=== PATIENT | female | born 1940 | race African-American/Black ===

== ENCOUNTER → 2016-11-29 | Outpatient (CLI) | payer MEDICARE, MEDICAID ==
[~2016-11-29] MED LIST: DIGO125T82 PO; DILT180C3 PO; ELIQUIS PO; FURO40TA5 PO; GUAI120015 PO; LEVO750T46 PO; OLME20TA14 PO; POTA20TA75 PO; SPIR25TA4 PO; VIAG50 PO
[2016-11-29 09:43] LABS: BG DEOXYHEMOGLOBIN 6.2 % (0.0-5.0); BG FRACTION INSPIRED OXYGEN 21; BG HCO3 ACT 22.1 mmol/L (22.0-26.0); BG METHEMOGLOBIN 0.2 % (0.0-1.5); BG OXYGEN SATURATION 93.7 % (92.0-98.5); BG OXYHEMOGLOBIN 92.6 % (94.0-97.0); BG PCO2 32.2 mmHg (35.0-45.0); BG PH 7.455 (7.350-7.450); BG PO2 67.6 mmHg (75.0-100.0); BG SAMPLE SITE RIGHT BRACHIAL; BG TOTAL HEMOGLOBIN 13.1 g/dL (12.0-18.0); BG VENT MODE ROOM AIR
== END | disposition home or self-care (01) ==
LOC: PF 09:15
PROVIDERS: ATTEND Internal Medicine Pulmonary Disease
DX: J44.9 Chronic obstructive pulmonary disease, unspecified (principal)
CPT/HCPCS: 36600; 82375; 82805

== ENCOUNTER 2018-11-21 10:41 | Inpatient (IN) | payer MEDICARE, MEDICAID ==
[~2018-11-21] VITALS: Ht 157.5 cm; Wt 80.8 kg
[~2018-11-21 10:41] MED LIST changes: +ALBU18HF2 IH; +AMBR5TAB3 MT; +AMLO2.5T45 PO; +BREO ELLIPTA INH; +DEXL60CA3 PO; -DILT180C3 PO; +DILT180C54 PO; +INCRUSE ELLIPTA INH; -LEVO750T46 PO; +METOLAZONE PO; -OLME20TA14 PO; +POTA20TA12 PO; -POTA20TA75 PO; -SPIR25TA4 PO; -VIAG50 PO; +VITAMIN PO
[2018-11-21 11:32] LABS: BASOPHILS % 0.8 % (0.0-2.0); HEMATOCRIT. 38.4 % (36.0-48.0); HEMOGLOBIN. 12.8 g/dL (12.0-16.0); LYMPHOCYTES % 15.8 % (20.0-50.0); MEAN CORPUSCULAR HEMOGLOBIN 30.3 pg (28.0-32.0); MONOCYTES % 8.7 % (2.0-8.0); NEUTROPHILS % 72.7 % (40.0-76.0); PLATELET 251 x1000/uL (130-400); RED BLOOD CELL COUNT 4.22 mill/uL (4.2-5.4); RED CELL DISTRIBUTION WIDTH 18.5 % (11.6-14.6)
[2018-11-21 11:37] LABS: CHLORIDE 109 mEq/L (98-107)
[2018-11-21 12:08] LABS: BG BASE EXCESS -1.3 mmol/L (-2.0-2.0); BG BILEVEL POS AIRWAY PRESSURE 15/5; BG CARBOXYHEMOGLOBIN 0.8 % (0.5-1.5); BG DEOXYHEMOGLOBIN 0.3 % (0.0-5.0); BG HCO3 ACT 22.2 mmol/L (22.0-26.0); BG METHEMOGLOBIN 0.2 % (0.0-1.5); BG OXYGEN SATURATION 99.7 % (92.0-98.5); BG OXYHEMOGLOBIN 98.7 % (94.0-97.0); BG PCO2 33.5 mmHg (35.0-45.0); BG PH 7.439 (7.350-7.450); BG PO2 507.1 mmHg (75.0-100.0); BG SAMPLE SITE RIGHT RADIAL; BG TOTAL HEMOGLOBIN 12.4 g/dL (12.0-18.0); BG VENT MODE MASK - BIPAP; BG VENT RATE 14 set
[2018-11-21] MEDS ORDERED: LEVOFLOXACIN 750MG PREMIX 150 ML IV ONE (13:15)
[2018-11-21] MEDS ORDERED: FUROSEMIDE 100MG/10ML VIAL IVP SCH (15:30)
[2018-11-21] MEDS ORDERED: AMLODIPINE 2.5MG TABLET PO SCH (15:30)
[2018-11-21] MEDS ORDERED: DILTIAZEM HCL 30MG TABLET PO SCH (18:00)
[2018-11-21] MEDS ORDERED: LEVOFLOXACIN 500MG PREMIX 100 ML IV ONE (21:30)
[2018-11-21 22:00] VITALS: BP 107/68
[2018-11-21 23:04] VITALS: BP 120/56
[2018-11-21] MEDS ORDERED: SPIR25TA6 PO (23:46)
[2018-11-21] MEDS ORDERED: MIDO5TAB PO (23:46)
[2018-11-21] MEDS: DILTIAZEM HCL 30MG TABLET PO SCH (23:57)
[2018-11-21] MEDS: ENOXAPARIN 60MG/0.6ML SYR SUBCUT SCH (23:58)
[2018-11-22] VITALS (15 sets, daily range): BP systolic 94–140; BP diastolic 31–121
[2018-11-22] MEDS ORDERED: METHYLPREDNISOLONE SOD SUCC 125 MG/2 ML VIAL IV NR
[2018-11-22] MEDS: METHYLPREDNISOLONE SOD SUCC 40 MG/ML VIAL IV SCH ×3 (06:34→21:32)
[2018-11-22] MEDS: DILTIAZEM HCL 30MG TABLET PO SCH ×3 (06:35→18:00)
[2018-11-22 07:00] LABS: HEMATOCRIT. 36.7 % (36.0-48.0); MEAN CORPUSCULAR HEMOGLOBIN 29.7 pg (28.0-32.0); MEAN CORPUSCULAR VOLUME 90.4 fL (81.0-99.0); MEAN PLATELET VOLUME 8.8 fl (7.4-10.4); PLATELET 215 x1000/uL (130-400); RED BLOOD CELL COUNT 4.06 mill/uL (4.2-5.4); RED CELL DISTRIBUTION WIDTH 18.8 % (11.6-14.6)
[2018-11-22 07:12] LABS: CHLORIDE 109 mEq/L (98-107)
[2018-11-22 07:25] LABS: D-DIMER 12.55 mg/L FEU (<0.50); INR 1.2
[2018-11-22 07:25] LABS: CREATINE KINASE MB FRACTION 2.8 ng/mL (0.5-3.6)
[2018-11-22 07:26] LABS: CREATINE KINASE 72 IU/L (26-192)
[2018-11-22 07:27] LABS: LDL CHOLESTEROL 86 mg/dL (5-100); PHOSPHORUS 3.5 mg/dL (2.5-4.9)
[2018-11-22 07:28] LABS: HDL CHOLESTEROL 42 mg/dL (40-59)
[2018-11-22 08:08] LABS: BG BASE EXCESS -2.7 mmol/L (-2.0-2.0); BG CARBOXYHEMOGLOBIN 0.9 % (0.5-1.5); BG DEOXYHEMOGLOBIN 3.3 % (0.0-5.0); BG FRACTION INSPIRED OXYGEN 32; BG HCO3 ACT 20.5 mmol/L (22.0-26.0); BG METHEMOGLOBIN 0.3 % (0.0-1.5); BG OXYGEN SATURATION 96.7 % (92.0-98.5); BG OXYHEMOGLOBIN 95.5 % (94.0-97.0); BG PCO2 31.3 mmHg (35.0-45.0); BG PH 7.435 (7.350-7.450); BG PO2 91.1 mmHg (75.0-100.0); BG SAMPLE SITE RIGHT RADIAL; BG TOTAL HEMOGLOBIN 12.8 g/dL (12.0-18.0); BG VENT MODE NASAL CANNULA
[2018-11-22 08:37] LABS: DIGOXIN 0.1 ng/mL (0.9-2.0)
[2018-11-22] MEDS: IPRATROPIUM/ALBUTEROL 0.5-3(2.5)MG/3ML NEB HHN SCH ×4 (08:46→21:08)
[2018-11-22] MEDS ORDERED: FUROSEMIDE 40MG/4ML VIAL IVP SCH ×2 (09:00→11:00)
[2018-11-22] MEDS ORDERED: AMLODIPINE 2.5MG TABLET PO SCH (09:00)
[2018-11-22] MEDS: ENOXAPARIN 60MG/0.6ML SYR SUBCUT SCH (09:40)
[2018-11-22] MEDS: CLOTRIMAZOLE 1% CREAM 30GM TOP SCH (14:00)
[2018-11-22] MEDS: LEVOFLOXACIN 500MG PREMIX 100 ML IV SCH (14:01)
[2018-11-22] MEDS: ENOXAPARIN 80MG/0.8ML SYR SUBCUT SCH (21:32)
[2018-11-22] MEDS: FUROSEMIDE 40MG/4ML VIAL IVP SCH (21:36)
[2018-11-23] VITALS (19 sets, daily range): BP systolic 94–114; BP diastolic 48–73
[2018-11-23] MEDS: IPRATROPIUM/ALBUTEROL 0.5-3(2.5)MG/3ML NEB HHN SCH ×6 (00:18→20:21)
[2018-11-23] MEDS: DILTIAZEM HCL 30MG TABLET PO SCH ×4 (01:00→18:00)
[2018-11-23] MEDS: METOLAZONE 2.5MG TABLET PO SCH (06:36)
[2018-11-23] MEDS: METHYLPREDNISOLONE SOD SUCC 40 MG/ML VIAL IV SCH ×3 (06:37→21:14)
[2018-11-23 07:02] LABS: CHLORIDE 108 mEq/L (98-107)
[2018-11-23 07:27] LABS: HEMATOCRIT. 35.1 % (36.0-48.0); HEMOGLOBIN. 11.7 g/dL (12.0-16.0); MEAN CORPUSCULAR HEMOGLOBIN 30.3 pg (28.0-32.0); MEAN PLATELET VOLUME 9.3 fl (7.4-10.4); PLATELET 216 x1000/uL (130-400); RED BLOOD CELL COUNT 3.86 mill/uL (4.2-5.4); RED CELL DISTRIBUTION WIDTH 18.7 % (11.6-14.6)
[2018-11-23] MEDS: FUROSEMIDE 40MG/4ML VIAL IVP SCH ×2 (08:30→16:43)
[2018-11-23] MEDS: ENOXAPARIN 80MG/0.8ML SYR SUBCUT SCH ×2 (08:30→21:14)
[2018-11-23] MEDS: CLOTRIMAZOLE 1% CREAM 30GM TOP SCH (08:48)
[2018-11-23 11:17] LABS: PLATELET ESTIMATE NORMAL
[2018-11-23] MEDS ORDERED: FLUTICASONE/VILANTEROL 200-25 BLST.W.DEV ORI SCH (13:00)
[2018-11-23] MEDS ORDERED: UMECLIDINIUM BROMIDE 1 INH BLST.W.DEV IH SCH (13:00)
[2018-11-23 13:57] LABS: NUCLEATED RED BLOOD CELLS 1 /100 WBC; PLATELET ESTIMATE NORMAL
[2018-11-23] MEDS: LEVOFLOXACIN 500MG PREMIX 100 ML IV SCH (14:05)
[2018-11-24] VITALS (22 sets, daily range): BP systolic 94–185; BP diastolic 38–160
[2018-11-24] MEDS: DILTIAZEM HCL 30MG TABLET PO SCH ×4 (00:16→17:51)
[2018-11-24] MEDS: IPRATROPIUM/ALBUTEROL 0.5-3(2.5)MG/3ML NEB HHN SCH ×6 (00:30→21:06)
[2018-11-24] MEDS: METOLAZONE 2.5MG TABLET PO SCH (06:05)
[2018-11-24] MEDS: METHYLPREDNISOLONE SOD SUCC 40 MG/ML VIAL IV SCH ×3 (06:05→21:38)
[2018-11-24 06:11] LABS: HEMATOCRIT. 33.2 % (36.0-48.0); HEMOGLOBIN. 11.1 g/dL (12.0-16.0); MEAN CORPUSCULAR HEMOGLOBIN 30.2 pg (28.0-32.0); MEAN PLATELET VOLUME 9.1 fl (7.4-10.4); PLATELET 149 x1000/uL (130-400); RED BLOOD CELL COUNT 3.69 mill/uL (4.2-5.4); RED CELL DISTRIBUTION WIDTH 18.2 % (11.6-14.6)
[2018-11-24] MEDS: FUROSEMIDE 40MG/4ML VIAL IVP SCH ×2 (06:36→17:44)
[2018-11-24] MEDS: LETAIRIS 5 MG PO SCH ×2 (09:00→09:55)
[2018-11-24] MEDS: BUDESONIDE 0.5MG/2ML NEB HHN SCH ×2 (09:17→21:07)
[2018-11-24] MEDS: CLOTRIMAZOLE 1% CREAM 30GM TOP SCH (09:18)
[2018-11-24] MEDS: ENOXAPARIN 80MG/0.8ML SYR SUBCUT SCH ×2 (09:18→21:38)
[2018-11-24 13:57] LABS: PLATELET ESTIMATE NORMAL
[2018-11-24] MEDS: LEVOFLOXACIN 250MG PREMIX 50 ML IV SCH (14:54)
[2018-11-25] VITALS (12 sets, daily range): BP systolic 102–137; BP diastolic 58–72
[2018-11-25] MEDS: DILTIAZEM HCL 30MG TABLET PO SCH ×4 (00:04→17:12)
[2018-11-25] MEDS: IPRATROPIUM/ALBUTEROL 0.5-3(2.5)MG/3ML NEB HHN SCH ×6 (00:44→20:55)
[2018-11-25] MEDS: METOLAZONE 2.5MG TABLET PO SCH (06:12)
[2018-11-25] MEDS: METHYLPREDNISOLONE SOD SUCC 40 MG/ML VIAL IV SCH ×2 (06:12→13:29)
[2018-11-25 06:41] LABS: HEMATOCRIT. 34.1 % (36.0-48.0); HEMOGLOBIN. 11.5 g/dL (12.0-16.0); MEAN CORPUSCULAR HEMOGLOBIN 30.4 pg (28.0-32.0); MEAN CORPUSCULAR VOLUME 89.9 fL (81.0-99.0); PLATELET 189 x1000/uL (130-400); RED BLOOD CELL COUNT 3.79 mill/uL (4.2-5.4); RED CELL DISTRIBUTION WIDTH 18.5 % (11.6-14.6)
[2018-11-25] MEDS: FUROSEMIDE 40MG/4ML VIAL IVP SCH ×2 (07:00→17:10)
[2018-11-25] MEDS: ENOXAPARIN 80MG/0.8ML SYR SUBCUT SCH ×2 (07:42→21:02)
[2018-11-25] MEDS: CLOTRIMAZOLE 1% CREAM 30GM TOP SCH (07:42)
[2018-11-25] MEDS: BUDESONIDE 0.5MG/2ML NEB HHN SCH ×2 (08:44→20:54)
[2018-11-25] MEDS: LETAIRIS 5 MG PO SCH (09:23)
[2018-11-25] MEDS: POTASSIUM CHLORIDE 20MEQ TABLET SR PO SCH ×2 (13:29→17:11)
[2018-11-25] MEDS: LEVOFLOXACIN 250MG PREMIX 50 ML IV SCH (13:29)
[2018-11-25 16:40] LABS: PLATELET ESTIMATE NORMAL
[2018-11-25] MEDS ORDERED: POTASSIUM CHLORIDE 20MEQ TABLET SR PO NR (16:45)
[2018-11-25] MEDS ORDERED: PREDNISONE 20MG TABLET PO NR (18:30)
[2018-11-26] VITALS (12 sets, daily range): BP systolic 100–120; BP diastolic 53–69
[2018-11-26] MEDS: IPRATROPIUM/ALBUTEROL 0.5-3(2.5)MG/3ML NEB HHN SCH ×6 (00:12→20:39)
[2018-11-26] MEDS: METOLAZONE 2.5MG TABLET PO SCH (06:06)
[2018-11-26] MEDS: DILTIAZEM HCL 30MG TABLET PO SCH ×4 (06:06→17:15)
[2018-11-26 06:14] LABS: HEMATOCRIT. 36.7 % (36.0-48.0); HEMOGLOBIN. 12.3 g/dL (12.0-16.0); MEAN CORPUSCULAR HEMOGLOBIN 30.1 pg (28.0-32.0); MEAN CORPUSCULAR VOLUME 89.6 fL (81.0-99.0); MEAN PLATELET VOLUME 8.8 fl (7.4-10.4); PLATELET 172 x1000/uL (130-400); RED CELL DISTRIBUTION WIDTH 18.2 % (11.6-14.6)
[2018-11-26] MEDS: FUROSEMIDE 40MG/4ML VIAL IVP SCH ×2 (08:09→16:19)
[2018-11-26] MEDS: POTASSIUM CHLORIDE 20MEQ TABLET SR PO SCH ×2 (08:09→16:18)
[2018-11-26] MEDS: PREDNISONE 20MG TABLET PO SCH (08:09)
[2018-11-26] MEDS: ENOXAPARIN 80MG/0.8ML SYR SUBCUT SCH ×2 (08:10→20:55)
[2018-11-26] MEDS: LETAIRIS 5 MG PO SCH (08:10)
[2018-11-26] MEDS: CLOTRIMAZOLE 1% CREAM 30GM TOP SCH (08:11)
[2018-11-26] MEDS: BUDESONIDE 0.5MG/2ML NEB HHN SCH ×2 (09:20→11:00)
[2018-11-26] MEDS: LEVOFLOXACIN 250MG PREMIX 50 ML IV SCH (13:07)
[2018-11-26 14:02] LABS: PLATELET ESTIMATE NORMAL
[2018-11-27] VITALS (12 sets, daily range): BP systolic 101–122; BP diastolic 46–84
[2018-11-27] MEDS: DILTIAZEM HCL 30MG TABLET PO SCH ×3 (00:17→11:28)
[2018-11-27] MEDS: IPRATROPIUM/ALBUTEROL 0.5-3(2.5)MG/3ML NEB HHN SCH ×2 (01:23→11:08)
[2018-11-27] MEDS: METOLAZONE 2.5MG TABLET PO SCH (06:26)
[2018-11-27] MEDS: FUROSEMIDE 40MG/4ML VIAL IVP SCH (08:12)
[2018-11-27] MEDS: POTASSIUM CHLORIDE 20MEQ TABLET SR PO SCH ×2 (08:12→16:26)
[2018-11-27] MEDS: ENOXAPARIN 80MG/0.8ML SYR SUBCUT SCH ×2 (08:13→20:57)
[2018-11-27] MEDS: PREDNISONE 20MG TABLET PO SCH (08:13)
[2018-11-27] MEDS: CLOTRIMAZOLE 1% CREAM 30GM TOP SCH (08:13)
[2018-11-27] MEDS: LETAIRIS 5 MG PO SCH (08:14)
[2018-11-27] MEDS: MULTIVITAMINS,THER W-MINERALS TABLET PO SCH (11:28)
[2018-11-27] MEDS ORDERED: POTASSIUM CHLORIDE 20MEQ/PACKET PO NR (13:56)
[2018-11-27] MEDS ORDERED: LEVOFLOXACIN 250MG TABLET PO SCH (14:00)
[2018-11-27] MEDS: MIDODRINE HCL 5MG TABLET PO SCH ×2 (14:37→16:26)
[2018-11-27] MEDS ORDERED: ALBUTEROL (0.083%) 2.5MG/3ML NEB HHN PRN (17:15)
[2018-11-27] MEDS: DILTIAZEM HCL 120MG CAPSULE CD 24HR PO SCH (17:46)
[2018-11-27] MEDS: FLUTICASONE/VILANTEROL 200-25 BLST.W.DEV ORI SCH (18:00)
[2018-11-27] MEDS: UMECLIDINIUM BROMIDE 1 INH BLST.W.DEV IH SCH (19:07)
[2018-11-27] MEDS: FUROSEMIDE 80MG TABLET PO SCH (20:57)
[2018-11-28] VITALS (8 sets, daily range): BP systolic 93–117; BP diastolic 57–73
[2018-11-28 06:35] LABS: HEMATOCRIT. 36.2 % (36.0-48.0); HEMOGLOBIN. 12.2 g/dL (12.0-16.0); MEAN CORPUSCULAR HEMOGLOBIN 29.9 pg (28.0-32.0); MEAN CORPUSCULAR VOLUME 89.2 fL (81.0-99.0); MEAN PLATELET VOLUME 8.9 fl (7.4-10.4); PLATELET 169 x1000/uL (130-400); RED BLOOD CELL COUNT 4.06 mill/uL (4.2-5.4); RED CELL DISTRIBUTION WIDTH 18.5 % (11.6-14.6)
[2018-11-28] MEDS: ENOXAPARIN 80MG/0.8ML SYR SUBCUT SCH (08:01)
[2018-11-28] MEDS: LETAIRIS 5 MG PO SCH (08:02)
[2018-11-28] MEDS: MULTIVITAMINS,THER W-MINERALS TABLET PO SCH (08:02)
[2018-11-28] MEDS: MIDODRINE HCL 5MG TABLET PO SCH (08:02)
[2018-11-28] MEDS: POTASSIUM CHLORIDE 20MEQ TABLET SR PO SCH (08:02)
[2018-11-28] MEDS: PREDNISONE 20MG TABLET PO SCH (08:02)
[2018-11-28] MEDS: UMECLIDINIUM BROMIDE 1 INH BLST.W.DEV IH SCH (08:05)
[2018-11-28] MEDS: FUROSEMIDE 80MG TABLET PO SCH (08:10)
[2018-11-28] MEDS: CLOTRIMAZOLE 1% CREAM 30GM TOP SCH (08:10)
[2018-11-28] MEDS: FLUTICASONE/VILANTEROL 200-25 BLST.W.DEV ORI SCH (09:00)
[2018-11-28] MEDS: DILTIAZEM HCL 120MG CAPSULE CD 24HR PO SCH (09:00)
[2018-11-28 12:25] LABS: BG BASE EXCESS 15.5 mmol/L (-2.0-2.0); BG DEOXYHEMOGLOBIN 2.6 % (0.0-5.0); BG FRACTION INSPIRED OXYGEN 32; BG HCO3 ACT 40.3 mmol/L (22.0-26.0); BG METHEMOGLOBIN 0.3 % (0.0-1.5); BG OXYGEN SATURATION 97.4 % (92.0-98.5); BG OXYHEMOGLOBIN 96.1 % (94.0-97.0); BG PCO2 49.1 mmHg (35.0-45.0); BG PH 7.532 (7.350-7.450); BG PO2 94.1 mmHg (75.0-100.0); BG SAMPLE SITE RIGHT BRACHIAL; BG TOTAL HEMOGLOBIN 13.3 g/dL (12.0-18.0); BG VENT MODE NASAL CANNULA
[2018-11-28 14:01] LABS: PLATELET ESTIMATE NORMAL
== END 2018-11-28 13:12 | disposition home health service (06) | DRG 444 ==
LOC: ER 10:41 → 3WST 12:43 → EDBEDREQTM 12:47 → EDBEDREQ 12:47 → EDBEDREQSVC 12:47 → ENRESERV 21:15
PROVIDERS: ADMIT Internal Medicine Pulmonary Disease; ATTEND Internal Medicine Pulmonary Disease
PROC: 5A09357 Assistance with Respiratory Ventilation, Less than 24 Consecutive Hours, Continuous Positive Airway Pressure (ICD-10-PCS; principal; 2018-11-21)
DX: K80.20 Calculus of gallbladder without cholecystitis without obstruction (principal); J96.21 Acute and chronic respiratory failure with hypoxia; J96.22 Acute and chronic respiratory failure with hypercapnia; I50.33 Acute on chronic diastolic (congestive) heart failure; J44.1 Chronic obstructive pulmonary disease with (acute) exacerbation; E46 Unspecified protein-calorie malnutrition; I48.92 Unspecified atrial flutter; I11.0 Hypertensive heart disease with heart failure; I48.2 Chronic atrial fibrillation; I89.0 Lymphedema, not elsewhere classified; I27.20 Pulmonary hypertension, unspecified; I95.89 Other hypotension; B35.3 Tinea pedis; G62.9 Polyneuropathy, unspecified; I87.2 Venous insufficiency (chronic) (peripheral); I87.8 Other specified disorders of veins; K21.9 Gastro-esophageal reflux disease without esophagitis; L85.3 Xerosis cutis; Z80.8 Family history of malignant neoplasm of other organs or systems; Z81.1 Family history of alcohol abuse and dependence; Z90.710 Acquired absence of both cervix and uterus; Z90.49 Acquired absence of other specified parts of digestive tract; Z99.81 Dependence on supplemental oxygen; Z68.32 Body mass index [BMI] 32.0-32.9, adult; Z79.899 Other long term (current) drug therapy; Z87.01 Personal history of pneumonia (recurrent); Z80.3 Family history of malignant neoplasm of breast; Z83.1 Family history of other infectious and parasitic diseases
CPT/HCPCS: 36415; 36600; 71045; 80048; 80061; 80162; 82375; 82550; 82553; 82805; 83735; 83880; 84100; 84484; 85379; 93005; 93970; 94640; 94660; 96365; 97022; 97116; 97162; 97164; 99291; A6261; J1650; J1940; J1956; J2920; J2930; J7050; J7512; J7611; J7620; J7626; A4315

== ENCOUNTER 2019-04-04 20:20 | Inpatient (IN) | payer MEDICARE, MEDICAID ==
[~2019-04-04] VITALS: Ht 157.5 cm; Wt 64.0 kg
[2019-04-04 20:00] VITALS: BP 105/67
[~2019-04-04 20:20] MED LIST changes: -AMLO2.5T45 PO; +APIX5TAB MT; -BREO ELLIPTA INH; +DEXL60CA3 MT; -DEXL60CA3 PO; -DIGO125T82 PO; -DILT180C54 PO; -ELIQUIS PO; +FLUT1AER IH; -FURO40TA5 PO; -GUAI120015 PO; -INCRUSE ELLIPTA INH; -METOLAZONE PO; +MIDO5TAB PO; -POTA20TA12 PO; +UMEC62.5 INH; -VITAMIN PO
[2019-04-04 20:50] VITALS: BP 105/67
[2019-04-04] MEDS ORDERED: GUAIFENESIN-DM 200MG-20MG/10ML UDC PO PRN (22:15)
[2019-04-04] MEDS ORDERED: TRAMADOL 50MG TABLET PO PRN (22:15)
[2019-04-04] MEDS ORDERED: DIPHENHYDRAMINE 50MG/ML VIAL IM PRN (22:15)
[2019-04-05] MEDS: DILTIAZEM HCL 30MG TABLET PO SCH ×4 (00:29→17:22)
[2019-04-05 06:00] LABS: CHLORIDE 95 mEq/L (98-107)
[2019-04-05] MEDS ORDERED: SULFAMETHOXAZOLE/TRIMETHOPRIM 400/80MG TAB PO SCH (06:00)
[2019-04-05 06:24] LABS: HEMATOCRIT. 31.3 % (36.0-48.0); HEMOGLOBIN. 10.6 g/dL (12.0-16.0); MEAN CORPUSCULAR HEMOGLOBIN 30.4 pg (28.0-32.0); MEAN CORPUSCULAR VOLUME 89.5 fL (81.0-99.0); PLATELET 276 x1000/uL (130-400)
[2019-04-05 08:00] VITALS: BP 98/61
[2019-04-05 08:15] LABS: PLATELET ESTIMATE NORMAL
[2019-04-05] MEDS: GUAIFENESIN 600MG ER TABLET PO SCH ×2 (08:29→21:39)
[2019-04-05] MEDS: PREDNISONE 20MG TABLET PO SCH (08:29)
[2019-04-05] MEDS: APIXABAN 5 MG TABLET PO SCH ×2 (08:30→17:00)
[2019-04-05] MEDS: MIDODRINE HCL 5MG TABLET PO SCH ×3 (08:30→17:21)
[2019-04-05] MEDS: FUROSEMIDE 40MG/4ML VIAL IVP SCH ×2 (08:31→17:22)
[2019-04-05] MEDS: SPIRONOLACTONE 25MG TABLET PO SCH (08:31)
[2019-04-05] MEDS: FLUTICASONE/VILANTEROL 200-25 BLST.W.DEV ORI SCH (08:32)
[2019-04-05] MEDS: UMECLIDINIUM BROMIDE 1 INH BLST.W.DEV IH SCH (08:32)
[2019-04-05] MEDS: POTASSIUM CHLORIDE 20MEQ TABLET SR PO SCH (08:33)
[2019-04-05] MEDS: PANTOPRAZOLE 40MG DR TABLET PO SCH (11:00)
[2019-04-05] MEDS ORDERED: BISACODYL 10MG SUPP PR PRN (11:00)
[2019-04-05] MEDS ORDERED: MINERAL OIL ENEMA 133ML PR SCH (11:00)
[2019-04-05] MEDS: DOCUSATE SODIUM 100MG CAPSULE PO SCH ×2 (12:12→17:22)
[2019-04-05] MEDS: LACTULOSE 20G/30ML UDC PO SCH ×3 (12:43→21:38)
[2019-04-05 20:00] VITALS: BP 116/73
[2019-04-05] MEDS: ALBUTEROL (0.083%) 2.5MG/3ML NEB HHN PRN (20:25)
[2019-04-05] MEDS: POLYETHYLENE GLYCOL 3350 (17GM) 1 DOSE PACK PO SCH (21:39)
[2019-04-06] MEDS: DILTIAZEM HCL 30MG TABLET PO SCH ×4 (05:30→17:18)
[2019-04-06] MEDS: PANTOPRAZOLE 40MG DR TABLET PO SCH (05:40)
[2019-04-06 07:49] VITALS: BP 100/60
[2019-04-06] MEDS: GUAIFENESIN 600MG ER TABLET PO SCH ×2 (08:25→21:48)
[2019-04-06] MEDS: POTASSIUM CHLORIDE 20MEQ TABLET SR PO SCH (08:26)
[2019-04-06] MEDS: MIDODRINE HCL 5MG TABLET PO SCH ×3 (08:26→17:18)
[2019-04-06] MEDS: SPIRONOLACTONE 25MG TABLET PO SCH (08:26)
[2019-04-06] MEDS: FLUTICASONE/VILANTEROL 200-25 BLST.W.DEV ORI SCH (08:29)
[2019-04-06] MEDS: UMECLIDINIUM BROMIDE 1 INH BLST.W.DEV IH SCH (08:30)
[2019-04-06] MEDS: FUROSEMIDE 40MG/4ML VIAL IVP SCH ×2 (08:33→17:19)
[2019-04-06] MEDS: DOCUSATE SODIUM 100MG CAPSULE PO SCH ×2 (09:00→17:00)
[2019-04-06] MEDS: PREDNISONE 20MG TABLET PO SCH (09:32)
[2019-04-06] MEDS: APIXABAN 5 MG TABLET PO SCH ×2 (09:32→17:35)
[2019-04-06 20:00] VITALS: BP 133/85
[2019-04-06] MEDS: POLYETHYLENE GLYCOL 3350 (17GM) 1 DOSE PACK PO SCH (21:48)
[2019-04-06 23:39] LABS: CLARITY URINE CLEAR (CLEAR); COLOR URINE YELLOW (YELLOW); KETONES URINE NEGATIVE (NEGATIVE); LEUKOCYTE ESTERASE URINE NEGATIVE (NEGATIVE); NITRITE URINE NEGATIVE (NEGATIVE); OCCULT BLOOD URINE 2+ (NEGATIVE); PH URINE 7.5 (4.5-8.0); PROTEIN URINE NEGATIVE (NEGATIVE); SPECIFIC GRAVITY URINE 1.008 (1.005-1.030)
[2019-04-07] MEDS: DILTIAZEM HCL 30MG TABLET PO SCH ×4 (00:03→17:35)
[2019-04-07 07:12] LABS: HEMOGLOBIN. 11.5 g/dL (12.0-16.0); MEAN CORPUSCULAR HEMOGLOBIN 30.6 pg (28.0-32.0); MEAN CORPUSCULAR VOLUME 88.2 fL (81.0-99.0); MEAN PLATELET VOLUME 8.7 fl (7.4-10.4); PLATELET 299 x1000/uL (130-400); RED BLOOD CELL COUNT 3.74 mill/uL (4.2-5.4); RED CELL DISTRIBUTION WIDTH 16.9 % (11.6-14.6)
[2019-04-07 07:47] LABS: FOLIC ACID (FOLATE) SERUM 13.8 ng/mL (>5.38)
[2019-04-07 08:03] LABS: PHOSPHORUS 2.9 mg/dL (2.5-4.9)
[2019-04-07 08:10] VITALS: BP 111/64
[2019-04-07] MEDS: POTASSIUM CHLORIDE 20MEQ TABLET SR PO SCH (08:53)
[2019-04-07] MEDS: APIXABAN 5 MG TABLET PO SCH ×2 (08:54→17:00)
[2019-04-07] MEDS: FUROSEMIDE 40MG/4ML VIAL IVP SCH ×2 (08:54→17:35)
[2019-04-07] MEDS: DOCUSATE SODIUM 100MG CAPSULE PO SCH ×2 (08:54→17:00)
[2019-04-07] MEDS: GUAIFENESIN 600MG ER TABLET PO SCH (08:54)
[2019-04-07] MEDS: PREDNISONE 20MG TABLET PO SCH (08:55)
[2019-04-07] MEDS: FAMOTIDINE 20MG TABLET PO SCH (08:55)
[2019-04-07] MEDS: MIDODRINE HCL 5MG TABLET PO SCH ×3 (08:55→17:00)
[2019-04-07] MEDS: SPIRONOLACTONE 25MG TABLET PO SCH (08:58)
[2019-04-07] MEDS: FLUTICASONE/VILANTEROL 200-25 BLST.W.DEV ORI SCH (09:36)
[2019-04-07] MEDS: UMECLIDINIUM BROMIDE 1 INH BLST.W.DEV IH SCH (09:36)
[2019-04-07] MEDS ORDERED: ONDANSETRON HCL 4MG/2ML INJ IV PRN (11:30)
[2019-04-07] MEDS: ALBUTEROL (0.083%) 2.5MG/3ML NEB HHN PRN (16:58)
[2019-04-07] MEDS ORDERED: DIATR MEGLU/DIATRIZOATE SOLN 30ML PO SCH ×4 (18:15→21:15)
[2019-04-07] MEDS: DEXTROSE 5% WATER 1,000 ML IV SCH (18:30)
[2019-04-07 20:00] VITALS: BP 109/64
[2019-04-07] MEDS: POLYETHYLENE GLYCOL 3350 (17GM) 1 DOSE PACK PO SCH (21:00)
[2019-04-07] MEDS ORDERED: DIATR MEGLU/DIATRIZOATE SOLN 30ML PO ONE (22:00)
[2019-04-07 22:07] LABS: NUCLEATED RED BLOOD CELLS 1 /100 WBC; PLATELET ESTIMATE NORMAL
[2019-04-08] MEDS: METOCLOPRAMIDE HCL 10MG/2ML VIAL IV SCH ×6 (00:01→20:56)
[2019-04-08] MEDS: POLYETHYLENE GLYCOL 3350 (17GM) 1 DOSE PACK PO SCH ×3 (00:01→21:00)
[2019-04-08] MEDS: GUAIFENESIN 600MG ER TABLET PO SCH ×3 (00:02→20:57)
[2019-04-08] MEDS: DILTIAZEM HCL 30MG TABLET PO SCH ×4 (06:00→17:14)
[2019-04-08 06:51] LABS: HEMATOCRIT. 34.2 % (36.0-48.0); HEMOGLOBIN. 11.8 g/dL (12.0-16.0); MEAN CORPUSCULAR HEMOGLOBIN 30.7 pg (28.0-32.0); MEAN CORPUSCULAR VOLUME 88.8 fL (81.0-99.0); MEAN PLATELET VOLUME 8.6 fl (7.4-10.4); PLATELET 291 x1000/uL (130-400); RED BLOOD CELL COUNT 3.86 mill/uL (4.2-5.4); RED CELL DISTRIBUTION WIDTH 16.8 % (11.6-14.6)
[2019-04-08 07:29] LABS: CHLORIDE 95 mEq/L (98-107)
[2019-04-08 08:06] VITALS: BP 114/70
[2019-04-08] MEDS: FUROSEMIDE 40MG/4ML VIAL IVP SCH ×2 (08:52→16:01)
[2019-04-08] MEDS: SPIRONOLACTONE 25MG TABLET PO SCH (08:52)
[2019-04-08] MEDS: PREDNISONE 20MG TABLET PO SCH (08:53)
[2019-04-08] MEDS: APIXABAN 5 MG TABLET PO SCH ×2 (08:53→16:01)
[2019-04-08] MEDS: POTASSIUM CHLORIDE 20MEQ TABLET SR PO SCH ×2 (08:53→09:00)
[2019-04-08] MEDS: MIDODRINE HCL 5MG TABLET PO SCH ×3 (08:53→16:03)
[2019-04-08] MEDS: DOCUSATE SODIUM 100MG CAPSULE PO SCH ×2 (08:53→16:01)
[2019-04-08] MEDS: UMECLIDINIUM BROMIDE 1 INH BLST.W.DEV IH SCH (09:00)
[2019-04-08] MEDS: FLUTICASONE/VILANTEROL 200-25 BLST.W.DEV ORI SCH (09:00)
[2019-04-08] MEDS: FAMOTIDINE 20MG TABLET PO SCH (09:00)
[2019-04-08] MEDS ORDERED: SODIUM POLYSTYRENE SULFONATE 15 G/60 ML BOT PO ONE ×2 (11:00→15:00)
[2019-04-08 11:43] LABS: PLATELET ESTIMATE NORMAL
[2019-04-08] MEDS: DEXTROSE 5% WATER 1,000 ML IV SCH (13:46)
[2019-04-08 20:00] VITALS: BP 131/69
[2019-04-08] MEDS ORDERED: DIATR MEGLU/DIATRIZOATE SOLN 30ML PO NR (21:00)
[2019-04-08] MEDS: ALBUTEROL (0.083%) 2.5MG/3ML NEB HHN PRN (21:28)
[2019-04-09] MEDS: ALBUTEROL (0.083%) 2.5MG/3ML NEB HHN PRN ×2 (02:29→07:47)
[2019-04-09] MEDS: METOCLOPRAMIDE HCL 10MG/2ML VIAL IV SCH ×3 (03:49→14:33)
[2019-04-09] MEDS: DILTIAZEM HCL 30MG TABLET PO SCH ×3 (06:00→12:00)
[2019-04-09 07:57] VITALS: BP 113/63
[2019-04-09 08:17] LABS: HEMATOCRIT. 33.7 % (36.0-48.0); HEMOGLOBIN. 11.7 g/dL (12.0-16.0); MEAN CORPUSCULAR HEMOGLOBIN 31.1 pg (28.0-32.0); MEAN CORPUSCULAR VOLUME 89.4 fL (81.0-99.0); MEAN PLATELET VOLUME 8.8 fl (7.4-10.4); PLATELET 287 x1000/uL (130-400); RED BLOOD CELL COUNT 3.77 mill/uL (4.2-5.4); RED CELL DISTRIBUTION WIDTH 16.8 % (11.6-14.6)
[2019-04-09] MEDS: FAMOTIDINE 20MG TABLET PO SCH (08:41)
[2019-04-09] MEDS: FUROSEMIDE 40MG/4ML VIAL IVP SCH ×2 (08:41→16:53)
[2019-04-09] MEDS: GUAIFENESIN 600MG ER TABLET PO SCH (08:41)
[2019-04-09] MEDS: APIXABAN 5 MG TABLET PO SCH ×2 (08:41→16:56)
[2019-04-09] MEDS: PREDNISONE 20MG TABLET PO SCH (08:41)
[2019-04-09] MEDS: MIDODRINE HCL 5MG TABLET PO SCH ×3 (08:41→16:54)
[2019-04-09] MEDS: UMECLIDINIUM BROMIDE 1 INH BLST.W.DEV IH SCH (08:42)
[2019-04-09] MEDS: FLUTICASONE/VILANTEROL 200-25 BLST.W.DEV ORI SCH (08:42)
[2019-04-09] MEDS: DOCUSATE SODIUM 100MG CAPSULE PO SCH ×2 (09:00→16:52)
[2019-04-09 17:32] LABS: PLATELET ESTIMATE NORMAL
== END 2019-04-09 17:27 | disposition left against medical advice (07) | DRG 947 ==
PROVIDERS: ADMIT Physical Medicine & Rehabilitation Spinal Cord Injury Medicine; ATTEND Internal Medicine Pulmonary Disease
DX: R53.81 Other malaise (principal); J18.9 Pneumonia, unspecified organism; I50.23 Acute on chronic systolic (congestive) heart failure; J44.1 Chronic obstructive pulmonary disease with (acute) exacerbation; E46 Unspecified protein-calorie malnutrition; I13.0 Hypertensive heart and chronic kidney disease with heart failure and stage 1 through stage 4 chronic kidney disease, or unspecified chronic kidney disease; J96.11 Chronic respiratory failure with hypoxia; N17.9 Acute kidney failure, unspecified; J44.0 Chronic obstructive pulmonary disease with (acute) lower respiratory infection; D64.9 Anemia, unspecified; G62.9 Polyneuropathy, unspecified; E11.22 Type 2 diabetes mellitus with diabetic chronic kidney disease; E87.5 Hyperkalemia; F06.31 Mood disorder due to known physiological condition with depressive features; I27.29 Other secondary pulmonary hypertension; I34.0 Nonrheumatic mitral (valve) insufficiency; I48.2 Chronic atrial fibrillation; I27.81 Cor pulmonale (chronic); I95.1 Orthostatic hypotension; K21.9 Gastro-esophageal reflux disease without esophagitis; K57.90 Diverticulosis of intestine, part unspecified, without perforation or abscess without bleeding; K74.60 Unspecified cirrhosis of liver; K80.20 Calculus of gallbladder without cholecystitis without obstruction; M17.11 Unilateral primary osteoarthritis, right knee; N18.9 Chronic kidney disease, unspecified; N26.1 Atrophy of kidney (terminal); Z74.01 Bed confinement status; Z79.899 Other long term (current) drug therapy; Z82.49 Family history of ischemic heart disease and other diseases of the circulatory system; Z83.3 Family history of diabetes mellitus; Z87.01 Personal history of pneumonia (recurrent); Z90.710 Acquired absence of both cervix and uterus; Z99.81 Dependence on supplemental oxygen; Z68.25 Body mass index [BMI] 25.0-25.9, adult
CPT/HCPCS: 36415; 74176; 80048; 82306; 82607; 82728; 82746; 83540; 83550; 83735; 84100; 84134; 84443; 92610; 93970; 94640; 97110; 97112; 97116; 97162; 97166; 97530; 97535; J1940; J2405; J2765; J7070; J7512; J7611; Q9963

== ENCOUNTER 2019-09-08 10:55 | Inpatient (IN) | payer MEDICARE, MEDICAID ==
[~2019-09-08] VITALS: Ht 157.5 cm; Wt 92.7 kg
[~2019-09-08 10:55] MED LIST changes: -MIDO5TAB PO; +MIDO5TAB4 PO
[2019-09-08] MEDS ORDERED: FUROSEMIDE 40MG/4ML VIAL IVP ONE (12:45)
[2019-09-08] MEDS ORDERED: ENALAPRIL 2.5MG/2ML VIAL 2ML IV ONE (12:45)
[2019-09-08 12:59] LABS: CHLORIDE 109 mEq/L (98-107)
[2019-09-08 13:18] LABS: HEMOGLOBIN. 11.7 g/dL (12.0-16.0); MEAN CORPUSCULAR HEMOGLOBIN 28.5 pg (28.0-32.0); MEAN CORPUSCULAR VOLUME 85.4 fL (81.0-99.0); MEAN PLATELET VOLUME 8.8 fl (7.4-10.4); PLATELET 315 x1000/uL (130-400); RED CELL DISTRIBUTION WIDTH 17.1 % (11.6-14.6)
[2019-09-08 13:44] LABS: PLATELET ESTIMATE NORMAL
[2019-09-08] MEDS ORDERED: IPRATROPIUM/ALBUTEROL 0.5-3(2.5)MG/3ML NEB HHN PRN (22:15)
[2019-09-08] MEDS ORDERED: DOCUSATE SODIUM 100MG CAPSULE PO PRN (22:15)
[2019-09-09] MEDS ORDERED: PREDNISONE 20MG TABLET PO NR
[2019-09-09] MEDS ORDERED: LEVOFLOXACIN 500MG PREMIX 100 ML IV NR
[2019-09-09] MEDS: OMEPRAZOLE 20MG CAPSULE EXTENDED RELEASE PO SCH ×3 (00:03→17:18)
[2019-09-09] MEDS: POTASSIUM CHLORIDE 20MEQ TABLET SR PO SCH ×3 (00:03→17:19)
[2019-09-09 01:14] LABS: BG CARBOXYHEMOGLOBIN 0.5 % (0.5-1.5); BG DEOXYHEMOGLOBIN 2.6 % (0.0-5.0); BG FRACTION INSPIRED OXYGEN 32; BG HCO3 ACT 25.4 mmol/L (22.0-26.0); BG METHEMOGLOBIN 0.2 % (0.0-1.5); BG OXYGEN SATURATION 97.4 % (92.0-98.5); BG OXYHEMOGLOBIN 96.7 % (94.0-97.0); BG PCO2 39.4 mmHg (35.0-45.0); BG PH 7.427 (7.350-7.450); BG PO2 102.8 mmHg (75.0-100.0); BG SAMPLE SITE RIGHT RADIAL; BG TOTAL HEMOGLOBIN 11.9 g/dL (12.0-18.0); BG VENT MODE NASAL CANNULA
[2019-09-09 02:47] VITALS: BP 102/57
[2019-09-09] MEDS ORDERED: MIDO2.5T PO (03:01)
[2019-09-09] MEDS ORDERED: DILT-26 PO (03:04)
[2019-09-09] MEDS ORDERED: METO2.5T14 PO (03:04)
[2019-09-09] MEDS ORDERED: FURO40SO4 PO (03:06)
[2019-09-09 04:00] VITALS: BP 100/65
[2019-09-09 08:00] VITALS: BP 101/59
[2019-09-09] MEDS: DILTIAZEM HCL 120MG CAPSULE CD 24HR PO SCH (08:49)
[2019-09-09] MEDS: PREDNISONE 20MG TABLET PO SCH (08:51)
[2019-09-09] MEDS: METOLAZONE 2.5MG TABLET PO SCH (08:51)
[2019-09-09] MEDS: SPIRONOLACTONE 25MG TABLET PO SCH (08:53)
[2019-09-09] MEDS: APIXABAN 5 MG TABLET PO SCH ×2 (08:54→17:19)
[2019-09-09] MEDS: MULTIVITAMINS,THER W-MINERALS TABLET PO SCH (09:00)
[2019-09-09] MEDS ORDERED: APIXABAN 5 MG TABLET PO SCH (09:00)
[2019-09-09] MEDS: IPRATROPIUM/ALBUTEROL 0.5-3(2.5)MG/3ML NEB HHN SCH ×3 (11:39→20:45)
[2019-09-09 11:55] LABS: HEMATOCRIT. 37.6 % (36.0-48.0); HEMOGLOBIN. 12.7 g/dL (12.0-16.0); MEAN CORPUSCULAR VOLUME 86.1 fL (81.0-99.0); MEAN PLATELET VOLUME 8.4 fl (7.4-10.4); PLATELET 243 x1000/uL (130-400); RED BLOOD CELL COUNT 4.36 mill/uL (4.2-5.4); RED CELL DISTRIBUTION WIDTH 17.2 % (11.6-14.6)
[2019-09-09 12:00] VITALS: BP 98/67
[2019-09-09 13:56] LABS: PLATELET ESTIMATE NORMAL
[2019-09-09] MEDS: MIDODRINE HCL 2.5MG TABLET PO SCH ×2 (15:03→17:19)
[2019-09-09 20:00] VITALS: BP 104/65
[2019-09-09] MEDS: LEVOFLOXACIN 250MG PREMIX 50 ML IV SCH (22:50)
[2019-09-10] VITALS: BP 100/58
[2019-09-10] MEDS: IPRATROPIUM/ALBUTEROL 0.5-3(2.5)MG/3ML NEB HHN SCH ×6 (00:38→20:30)
[2019-09-10 04:00] VITALS: BP 136/49
[2019-09-10 07:15] LABS: HEMATOCRIT. 33.9 % (36.0-48.0); HEMOGLOBIN. 11.3 g/dL (12.0-16.0); MEAN CORPUSCULAR HEMOGLOBIN 28.8 pg (28.0-32.0); MEAN CORPUSCULAR VOLUME 86.3 fL (81.0-99.0); MEAN PLATELET VOLUME 8.8 fl (7.4-10.4); PLATELET 260 x1000/uL (130-400); RED BLOOD CELL COUNT 3.93 mill/uL (4.2-5.4); RED CELL DISTRIBUTION WIDTH 17.4 % (11.6-14.6)
[2019-09-10 08:00] VITALS: BP 94/50
[2019-09-10 08:04] LABS: PHOSPHORUS 3.9 mg/dL (2.5-4.9)
[2019-09-10] MEDS: DILTIAZEM HCL 120MG CAPSULE CD 24HR PO SCH (09:00)
[2019-09-10] MEDS: APIXABAN 5 MG TABLET PO SCH ×2 (10:19→17:21)
[2019-09-10] MEDS: METOLAZONE 2.5MG TABLET PO SCH (10:20)
[2019-09-10] MEDS: MIDODRINE HCL 2.5MG TABLET PO SCH ×3 (10:20→17:21)
[2019-09-10] MEDS: MULTIVITAMINS,THER W-MINERALS TABLET PO SCH (10:20)
[2019-09-10] MEDS: PREDNISONE 20MG TABLET PO SCH (10:20)
[2019-09-10] MEDS: OMEPRAZOLE 20MG CAPSULE EXTENDED RELEASE PO SCH ×2 (10:20→17:21)
[2019-09-10] MEDS: SPIRONOLACTONE 25MG TABLET PO SCH (10:20)
[2019-09-10 12:00] VITALS: BP 97/55
[2019-09-10] MEDS ORDERED: DEXTROSE 50% WATER 50ML SYRINGE IV NR (13:45)
[2019-09-10] MEDS ORDERED: FUROSEMIDE 40MG/4ML VIAL IVP NR (13:45)
[2019-09-10 13:54] LABS: NUCLEATED RED BLOOD CELLS 1 /100 WBC; PLATELET ESTIMATE NORMAL
[2019-09-10] MEDS ORDERED: INSULIN REGULAR (HUMULIN R) 300UNITS/3ML IV NR (14:00)
[2019-09-10] MEDS ORDERED: SODIUM POLYSTYRENE SULFONATE 15 G/60 ML BOT PO NR (14:00)
[2019-09-10] MEDS ORDERED: SODIUM CHLORIDE 0.9% 250 ML IV ONE (14:15)
[2019-09-10] MEDS ORDERED: INSULIN REGULAR (HUMULIN R) UD 100 UNITS/ML SYR IV NR (15:00)
[2019-09-10 16:00] VITALS: BP 107/69
[2019-09-10 20:00] VITALS: BP 102/71
[2019-09-10] MEDS: LEVOFLOXACIN 250MG PREMIX 50 ML IV SCH (21:52)
[2019-09-11] VITALS: BP 107/65
[2019-09-11] MEDS: IPRATROPIUM/ALBUTEROL 0.5-3(2.5)MG/3ML NEB HHN SCH ×5 (00:22→21:35)
[2019-09-11] MEDS: SODIUM POLYSTYRENE SULFONATE 15 G/60 ML BOT PO SCH ×4 (02:01→21:26)
[2019-09-11] MEDS: GUAIFENESIN 200MG/10ML SUGAR FREE UDC PO PRN ×2 (02:02→10:18)
[2019-09-11 04:00] VITALS: BP 106/56
[2019-09-11 08:00] VITALS: BP 103/76
[2019-09-11] MEDS: DILTIAZEM HCL 120MG CAPSULE CD 24HR PO SCH (09:00)
[2019-09-11] MEDS: METOLAZONE 2.5MG TABLET PO SCH (10:19)
[2019-09-11] MEDS: FAMOTIDINE 20MG TABLET PO SCH (10:19)
[2019-09-11] MEDS: PREDNISONE 20MG TABLET PO SCH (10:19)
[2019-09-11] MEDS: MULTIVITAMINS,THER W-MINERALS TABLET PO SCH (10:19)
[2019-09-11] MEDS: APIXABAN 5 MG TABLET PO SCH ×2 (10:19→18:47)
[2019-09-11] MEDS: MIDODRINE HCL 2.5MG TABLET PO SCH ×3 (10:20→18:48)
[2019-09-11 10:54] LABS: HEMATOCRIT. 35.5 % (36.0-48.0); HEMOGLOBIN. 11.9 g/dL (12.0-16.0); MEAN CORPUSCULAR HEMOGLOBIN 29.2 pg (28.0-32.0); MEAN CORPUSCULAR VOLUME 87.1 fL (81.0-99.0); MEAN PLATELET VOLUME 8.7 fl (7.4-10.4); PLATELET 252 x1000/uL (130-400); RED BLOOD CELL COUNT 4.08 mill/uL (4.2-5.4); RED CELL DISTRIBUTION WIDTH 17.5 % (11.6-14.6)
[2019-09-11 11:08] LABS: PHOSPHORUS 4.2 mg/dL (2.5-4.9)
[2019-09-11 12:00] VITALS: BP 108/69
[2019-09-11] MEDS ORDERED: SODIUM CHLORIDE 0.9% 500 ML IV ONE (12:00)
[2019-09-11] MEDS ORDERED: ONDANSETRON HCL 4MG/2ML INJ IV PRN (12:45)
[2019-09-11 13:49] LABS: NUCLEATED RED BLOOD CELLS 1 /100 WBC; PLATELET ESTIMATE NORMAL
[2019-09-11] MEDS ORDERED: FUROSEMIDE 40MG/4ML VIAL IVP NR (15:00)
[2019-09-11 16:00] VITALS: BP 107/71
[2019-09-11 20:00] VITALS: BP 100/55
[2019-09-11] MEDS: ONDANSETRON HCL 4MG/2ML INJ IV PRN (20:13)
[2019-09-11] MEDS: LEVOFLOXACIN 250MG PREMIX 50 ML IV SCH (20:13)
[2019-09-12 00:37] VITALS: BP 98/67
[2019-09-12] MEDS: IPRATROPIUM/ALBUTEROL 0.5-3(2.5)MG/3ML NEB HHN SCH ×6 (01:56→20:30)
[2019-09-12] MEDS: SODIUM POLYSTYRENE SULFONATE 15 G/60 ML BOT PO SCH ×2 (05:17→12:18)
[2019-09-12 07:29] LABS: HEMATOCRIT. 38.2 % (36.0-48.0); HEMOGLOBIN. 12.9 g/dL (12.0-16.0); MEAN CORPUSCULAR HEMOGLOBIN 28.9 pg (28.0-32.0); MEAN CORPUSCULAR VOLUME 86.1 fL (81.0-99.0); MEAN PLATELET VOLUME 8.4 fl (7.4-10.4); PLATELET 263 x1000/uL (130-400); RED BLOOD CELL COUNT 4.44 mill/uL (4.2-5.4); RED CELL DISTRIBUTION WIDTH 17.4 % (11.6-14.6)
[2019-09-12 07:45] LABS: CHLORIDE 108 mEq/L (98-107)
[2019-09-12 07:51] LABS: PHOSPHORUS 4.9 mg/dL (2.5-4.9)
[2019-09-12 08:00] VITALS: BP 111/63
[2019-09-12] MEDS: DILTIAZEM HCL 120MG CAPSULE CD 24HR PO SCH (08:43)
[2019-09-12] MEDS: METOLAZONE 2.5MG TABLET PO SCH (08:43)
[2019-09-12] MEDS: MULTIVITAMINS,THER W-MINERALS TABLET PO SCH (08:44)
[2019-09-12] MEDS: APIXABAN 5 MG TABLET PO SCH ×2 (08:44→17:56)
[2019-09-12] MEDS: FAMOTIDINE 20MG TABLET PO SCH (08:44)
[2019-09-12] MEDS: MIDODRINE HCL 2.5MG TABLET PO SCH ×3 (08:44→17:56)
[2019-09-12] MEDS: PREDNISONE 20MG TABLET PO SCH (08:44)
[2019-09-12 08:57] LABS: PLATELET ESTIMATE NORMAL
[2019-09-12 11:50] LABS: CHLORIDE 108 mEq/L (98-107)
[2019-09-12 11:59] VITALS: BP 95/61
[2019-09-12] MEDS: ONDANSETRON HCL 4MG/2ML INJ IV PRN ×2 (12:16→18:02)
[2019-09-12] MEDS ORDERED: SODIUM CHLORIDE 0.9% 500 ML IV ONE (13:15)
[2019-09-12] MEDS: DILTIAZEM HCL 30MG TABLET PO SCH ×2 (13:48→17:56)
[2019-09-12 16:00] VITALS: BP 95/61
[2019-09-12] MEDS ORDERED: FLUT1BLS INH (16:20)
[2019-09-12] MEDS ORDERED: SPIR25TA6 MT (16:20)
[2019-09-12 20:00] VITALS: BP 112/71
[2019-09-13] VITALS: BP 117/63
[2019-09-13] MEDS: IPRATROPIUM/ALBUTEROL 0.5-3(2.5)MG/3ML NEB HHN SCH ×6 (00:49→20:40)
[2019-09-13] MEDS: DILTIAZEM HCL 30MG TABLET PO SCH ×4 (00:53→17:24)
[2019-09-13 04:00] VITALS: BP_SYST 113; BP_SYST 146; BP_DIAS 72; BP_DIAS 82
[2019-09-13 08:00] VITALS: BP 103/61
[2019-09-13 08:19] LABS: BG BASE EXCESS -0.1 mmol/L (-2.0-2.0); BG CARBOXYHEMOGLOBIN 0.4 % (0.5-1.5); BG DEOXYHEMOGLOBIN 5.1 % (0.0-5.0); BG FRACTION INSPIRED OXYGEN 28; BG HCO3 ACT 24.9 mmol/L (22.0-26.0); BG METHEMOGLOBIN 1.1 % (0.0-1.5); BG OXYGEN SATURATION 94.8 % (92.0-98.5); BG OXYHEMOGLOBIN 93.4 % (94.0-97.0); BG PCO2 41.8 mmHg (35.0-45.0); BG PH 7.393 (7.350-7.450); BG PO2 78.8 mmHg (75.0-100.0); BG SAMPLE SITE RIGHT RADIAL; BG TOTAL HEMOGLOBIN 13.5 g/dL (12.0-18.0); BG VENT MODE NASAL CANNULA
[2019-09-13 08:21] LABS: HEMATOCRIT. 39.4 % (36.0-48.0); HEMOGLOBIN. 12.9 g/dL (12.0-16.0); MEAN CORPUSCULAR HEMOGLOBIN 28.1 pg (28.0-32.0); MEAN CORPUSCULAR VOLUME 85.4 fL (81.0-99.0); MEAN PLATELET VOLUME 8.5 fl (7.4-10.4); PLATELET 277 x1000/uL (130-400); RED BLOOD CELL COUNT 4.61 mill/uL (4.2-5.4); RED CELL DISTRIBUTION WIDTH 17.5 % (11.6-14.6)
[2019-09-13] MEDS: PREDNISONE 20MG TABLET PO SCH (08:41)
[2019-09-13] MEDS: APIXABAN 5 MG TABLET PO SCH ×2 (08:41→18:48)
[2019-09-13] MEDS: MULTIVITAMINS,THER W-MINERALS TABLET PO SCH (08:41)
[2019-09-13] MEDS: FAMOTIDINE 20MG TABLET PO SCH (08:42)
[2019-09-13] MEDS: MIDODRINE HCL 2.5MG TABLET PO SCH ×3 (08:42→18:48)
[2019-09-13] MEDS: METOLAZONE 2.5MG TABLET PO SCH (08:42)
[2019-09-13] MEDS: ONDANSETRON HCL 4MG/2ML INJ IV PRN ×2 (08:50→18:47)
[2019-09-13 12:00] VITALS: BP 112/58
[2019-09-13 12:41] LABS: ATYPICAL LYMPHOCYTES 1; NUCLEATED RED BLOOD CELLS 1 /100 WBC; PLATELET ESTIMATE NORMAL
[2019-09-13 16:00] VITALS: BP 116/68
[2019-09-13 20:00] VITALS: BP 103/64
[2019-09-14] VITALS: BP 108/70
[2019-09-14] MEDS: IPRATROPIUM/ALBUTEROL 0.5-3(2.5)MG/3ML NEB HHN SCH ×6 (00:49→21:59)
[2019-09-14] MEDS: DILTIAZEM HCL 30MG TABLET PO SCH ×4 (01:03→17:59)
[2019-09-14 04:00] VITALS: BP 105/65
[2019-09-14 08:00] VITALS: BP 103/56
[2019-09-14] MEDS: PREDNISONE 20MG TABLET PO SCH (09:18)
[2019-09-14] MEDS: MULTIVITAMINS,THER W-MINERALS TABLET PO SCH (09:18)
[2019-09-14] MEDS: MIDODRINE HCL 2.5MG TABLET PO SCH ×3 (09:19→17:59)
[2019-09-14] MEDS: FAMOTIDINE 20MG TABLET PO SCH (09:19)
[2019-09-14] MEDS: APIXABAN 5 MG TABLET PO SCH ×2 (09:19→17:59)
[2019-09-14 12:00] VITALS: BP 101/56
[2019-09-14 16:00] VITALS: BP 104/63
[2019-09-14 20:00] VITALS: BP 98/56
[2019-09-15] VITALS: BP 109/48
[2019-09-15] MEDS: IPRATROPIUM/ALBUTEROL 0.5-3(2.5)MG/3ML NEB HHN SCH ×6 (01:17→20:11)
[2019-09-15 04:00] VITALS: BP 103/62
[2019-09-15] MEDS: DILTIAZEM HCL 30MG TABLET PO SCH ×4 (06:28→17:16)
[2019-09-15 08:00] VITALS: BP 122/67
[2019-09-15] MEDS: ONDANSETRON HCL 4MG/2ML INJ IV PRN ×2 (09:19→15:05)
[2019-09-15] MEDS: FAMOTIDINE 20MG TABLET PO SCH (09:20)
[2019-09-15] MEDS: APIXABAN 5 MG TABLET PO SCH (09:20)
[2019-09-15] MEDS: PREDNISONE 20MG TABLET PO SCH (09:20)
[2019-09-15] MEDS: MIDODRINE HCL 2.5MG TABLET PO SCH ×3 (09:20→17:17)
[2019-09-15] MEDS: MULTIVITAMINS,THER W-MINERALS TABLET PO SCH (09:20)
[2019-09-15 12:00] VITALS: BP 104/70
[2019-09-15] MEDS: FUROSEMIDE 40MG/4ML VIAL IVP SCH (15:05)
[2019-09-15 16:00] VITALS: BP 115/73
[2019-09-15] MEDS: APIXABAN 2.5 MG TABLET PO SCH (17:16)
[2019-09-15] MEDS: METOCLOPRAMIDE HCL 5MG TABLET PO SCH ×2 (17:17→23:57)
[2019-09-15 19:54] LABS: CLARITY URINE CLEAR (CLEAR); COLOR URINE YELLOW (YELLOW); KETONES URINE NEGATIVE (NEGATIVE); LEUKOCYTE ESTERASE URINE 1+ (NEGATIVE); NITRITE URINE NEGATIVE (NEGATIVE); OCCULT BLOOD URINE 3+ (NEGATIVE); PROTEIN URINE NEGATIVE (NEGATIVE); SPECIFIC GRAVITY URINE 1.007 (1.005-1.030); UROBILINOGEN URINE 0.2 E.U./dL (0.2-1.0)
[2019-09-15 20:00] VITALS: BP 107/58
[2019-09-15] MEDS: SILDENAFIL CITRATE 20MG TABLET PO SCH (21:52)
[2019-09-16] VITALS (7 sets, daily range): BP systolic 90–104; BP diastolic 51–63
[2019-09-16] MEDS: IPRATROPIUM/ALBUTEROL 0.5-3(2.5)MG/3ML NEB HHN SCH ×6 (00:49→22:26)
[2019-09-16] MEDS: DILTIAZEM HCL 30MG TABLET PO SCH ×5 (05:39→23:52)
[2019-09-16] MEDS: METOCLOPRAMIDE HCL 5MG TABLET PO SCH ×4 (05:39→23:46)
[2019-09-16] MEDS: SILDENAFIL CITRATE 20MG TABLET PO SCH ×3 (05:39→21:27)
[2019-09-16 06:33] LABS: HEMATOCRIT. 36.9 % (36.0-48.0); HEMOGLOBIN. 12.3 g/dL (12.0-16.0); MEAN CORPUSCULAR HEMOGLOBIN 28.5 pg (28.0-32.0); MEAN CORPUSCULAR VOLUME 85.1 fL (81.0-99.0); MEAN PLATELET VOLUME 8.4 fl (7.4-10.4); PLATELET 252 x1000/uL (130-400); RED BLOOD CELL COUNT 4.34 mill/uL (4.2-5.4); RED CELL DISTRIBUTION WIDTH 17.7 % (11.6-14.6)
[2019-09-16] MEDS: MULTIVITAMINS,THER W-MINERALS TABLET PO SCH (10:03)
[2019-09-16] MEDS: PREDNISONE 20MG TABLET PO SCH (10:03)
[2019-09-16] MEDS: FUROSEMIDE 40MG/4ML VIAL IVP SCH (10:03)
[2019-09-16] MEDS: ONDANSETRON HCL 4MG/2ML INJ IV PRN (10:03)
[2019-09-16] MEDS: FAMOTIDINE 20MG TABLET PO SCH (10:03)
[2019-09-16] MEDS: MIDODRINE HCL 2.5MG TABLET PO SCH ×3 (10:04→17:52)
[2019-09-16] MEDS: APIXABAN 2.5 MG TABLET PO SCH ×2 (10:04→17:53)
[2019-09-16] MEDS ORDERED: DIATR MEGLU/DIATRIZOATE SOLN 30ML PO SCH (13:00)
[2019-09-16 18:53] LABS: PLATELET ESTIMATE NORMAL
[2019-09-17] MEDS: IPRATROPIUM/ALBUTEROL 0.5-3(2.5)MG/3ML NEB HHN SCH ×6 (01:25→21:04)
[2019-09-17 04:00] VITALS: BP 115/66
[2019-09-17] MEDS: SILDENAFIL CITRATE 20MG TABLET PO SCH ×3 (06:28→22:00)
[2019-09-17] MEDS: DILTIAZEM HCL 30MG TABLET PO SCH ×3 (06:28→17:42)
[2019-09-17] MEDS: METOCLOPRAMIDE HCL 5MG TABLET PO SCH ×3 (06:35→17:41)
[2019-09-17 06:54] LABS: HEMATOCRIT. 38.1 % (36.0-48.0); HEMOGLOBIN. 12.6 g/dL (12.0-16.0); MEAN CORPUSCULAR HEMOGLOBIN 28.3 pg (28.0-32.0); MEAN CORPUSCULAR VOLUME 85.7 fL (81.0-99.0); MEAN PLATELET VOLUME 8.2 fl (7.4-10.4); PLATELET 247 x1000/uL (130-400); RED BLOOD CELL COUNT 4.44 mill/uL (4.2-5.4); RED CELL DISTRIBUTION WIDTH 17.5 % (11.6-14.6)
[2019-09-17 08:00] VITALS: BP 98/62
[2019-09-17] MEDS: APIXABAN 2.5 MG TABLET PO SCH (09:52)
[2019-09-17] MEDS: FAMOTIDINE 20MG TABLET PO SCH (09:53)
[2019-09-17] MEDS: PREDNISONE 20MG TABLET PO SCH (09:53)
[2019-09-17] MEDS: FUROSEMIDE 40MG/4ML VIAL IVP SCH (09:53)
[2019-09-17] MEDS: MULTIVITAMINS,THER W-MINERALS TABLET PO SCH (09:53)
[2019-09-17] MEDS: MIDODRINE HCL 2.5MG TABLET PO SCH ×3 (09:53→17:42)
[2019-09-17] MEDS ORDERED: DIATR MEGLU/DIATRIZOATE SOLN 30ML PO SCH ×2 (10:00→10:05)
[2019-09-17] MEDS: ONDANSETRON HCL 4MG/2ML INJ IV PRN (10:17)
[2019-09-17 12:00] VITALS: BP 104/69
[2019-09-17 13:04] LABS: PLATELET ESTIMATE NORMAL
[2019-09-17 16:00] VITALS: BP 99/59
[2019-09-17 20:00] VITALS: BP 98/57
[2019-09-18] VITALS: BP 102/52
[2019-09-18] MEDS: IPRATROPIUM/ALBUTEROL 0.5-3(2.5)MG/3ML NEB HHN SCH ×6 (00:39→21:14)
[2019-09-18] MEDS: DILTIAZEM HCL 30MG TABLET PO SCH ×4 (01:06→17:15)
[2019-09-18] MEDS: METOCLOPRAMIDE HCL 5MG TABLET PO SCH ×4 (01:06→17:37)
[2019-09-18 04:00] VITALS: BP 107/65
[2019-09-18] MEDS: SILDENAFIL CITRATE 20MG TABLET PO SCH ×3 (06:17→21:51)
[2019-09-18 08:00] VITALS: BP 103/55
[2019-09-18] MEDS: MULTIVITAMINS,THER W-MINERALS TABLET PO SCH (10:24)
[2019-09-18] MEDS: MIDODRINE HCL 2.5MG TABLET PO SCH ×3 (10:24→17:37)
[2019-09-18] MEDS: PREDNISONE 20MG TABLET PO SCH (10:24)
[2019-09-18] MEDS: FAMOTIDINE 20MG TABLET PO SCH (10:24)
[2019-09-18 12:00] VITALS: BP 96/48
[2019-09-18] MEDS: APIXABAN 2.5 MG TABLET PO SCH ×2 (12:29→17:36)
[2019-09-18] MEDS: FUROSEMIDE 40MG/4ML VIAL IVP SCH (12:30)
[2019-09-18 15:41] LABS: HEMATOCRIT. 37.3 % (36.0-48.0); HEMOGLOBIN. 12.3 g/dL (12.0-16.0); MEAN CORPUSCULAR HEMOGLOBIN 28.1 pg (28.0-32.0); MEAN CORPUSCULAR VOLUME 85.5 fL (81.0-99.0); MEAN PLATELET VOLUME 8.4 fl (7.4-10.4); PLATELET 244 x1000/uL (130-400); RED BLOOD CELL COUNT 4.36 mill/uL (4.2-5.4); RED CELL DISTRIBUTION WIDTH 17.7 % (11.6-14.6)
[2019-09-18 16:00] VITALS: BP 103/51
[2019-09-18 16:14] LABS: PLATELET ESTIMATE NORMAL
[2019-09-18 20:00] VITALS: BP 116/64
[2019-09-18] MEDS ORDERED: NA PHOS,M-B/NA PHOS,DI-BA ENEMA 118ML PR NR (21:30)
[2019-09-19] VITALS: BP 118/74
[2019-09-19] MEDS: METOCLOPRAMIDE HCL 5MG TABLET PO SCH ×4 (00:12→17:24)
[2019-09-19] MEDS: DILTIAZEM HCL 30MG TABLET PO SCH ×4 (00:12→17:24)
[2019-09-19] MEDS: IPRATROPIUM/ALBUTEROL 0.5-3(2.5)MG/3ML NEB HHN SCH ×6 (00:54→20:25)
[2019-09-19 04:00] VITALS: BP 105/72
[2019-09-19] MEDS: SILDENAFIL CITRATE 20MG TABLET PO SCH ×3 (05:47→21:05)
[2019-09-19 07:18] LABS: HEMATOCRIT. 36.2 % (36.0-48.0); HEMOGLOBIN. 12.1 g/dL (12.0-16.0); MEAN CORPUSCULAR HEMOGLOBIN 28.3 pg (28.0-32.0); MEAN CORPUSCULAR VOLUME 84.9 fL (81.0-99.0); MEAN PLATELET VOLUME 8.5 fl (7.4-10.4); PLATELET 233 x1000/uL (130-400); RED BLOOD CELL COUNT 4.26 mill/uL (4.2-5.4); RED CELL DISTRIBUTION WIDTH 17.4 % (11.6-14.6)
[2019-09-19 07:40] LABS: CHLORIDE 101 mEq/L (98-107)
[2019-09-19 08:00] VITALS: BP 125/68
[2019-09-19] MEDS: FUROSEMIDE 40MG/4ML VIAL IVP SCH (08:41)
[2019-09-19] MEDS: APIXABAN 2.5 MG TABLET PO SCH ×2 (08:41→17:24)
[2019-09-19] MEDS: FAMOTIDINE 20MG TABLET PO SCH (08:41)
[2019-09-19] MEDS: MULTIVITAMINS,THER W-MINERALS TABLET PO SCH (08:41)
[2019-09-19] MEDS: MIDODRINE HCL 2.5MG TABLET PO SCH ×3 (08:41→17:24)
[2019-09-19] MEDS: PREDNISONE 20MG TABLET PO SCH (08:41)
[2019-09-19] MEDS ORDERED: POTASSIUM CHLORIDE 20MEQ TABLET SR PO NR (11:30)
[2019-09-19 12:00] VITALS: BP 112/61
[2019-09-19 16:00] VITALS: BP 122/66
[2019-09-19] MEDS ORDERED: NA PHOS,M-B/NA PHOS,DI-BA ENEMA 118ML PR PRN (16:45)
[2019-09-19] MEDS: BISACODYL 5MG TABLET PO SCH (18:55)
[2019-09-19 20:00] VITALS: BP 104/63
[2019-09-19] MEDS: LACTULOSE 20G/30ML UDC PO SCH (21:00)
[2019-09-20] VITALS: BP 104/59
[2019-09-20] MEDS: IPRATROPIUM/ALBUTEROL 0.5-3(2.5)MG/3ML NEB HHN SCH ×6 (00:58→20:59)
[2019-09-20 04:00] VITALS: BP 111/56
[2019-09-20] MEDS: DILTIAZEM HCL 30MG TABLET PO SCH ×4 (06:00→17:19)
[2019-09-20] MEDS: SILDENAFIL CITRATE 20MG TABLET PO SCH ×3 (06:28→21:13)
[2019-09-20] MEDS: METOCLOPRAMIDE HCL 5MG TABLET PO SCH ×4 (06:28→17:19)
[2019-09-20 07:36] LABS: HEMATOCRIT. 38.1 % (36.0-48.0); HEMOGLOBIN. 12.2 g/dL (12.0-16.0); MEAN CORPUSCULAR HEMOGLOBIN 27.3 pg (28.0-32.0); MEAN CORPUSCULAR VOLUME 85.1 fL (81.0-99.0); MEAN PLATELET VOLUME 8.6 fl (7.4-10.4); PLATELET 235 x1000/uL (130-400); RED BLOOD CELL COUNT 4.48 mill/uL (4.2-5.4); RED CELL DISTRIBUTION WIDTH 17.5 % (11.6-14.6)
[2019-09-20 07:44] LABS: CHLORIDE 99 mEq/L (98-107)
[2019-09-20 08:00] VITALS: BP 95/58
[2019-09-20] MEDS: BISACODYL 5MG TABLET PO SCH (09:00)
[2019-09-20] MEDS: DOCUSATE SODIUM 250MG CAPSULE PO SCH ×2 (09:00→17:00)
[2019-09-20] MEDS: FUROSEMIDE 40MG/4ML VIAL IVP SCH (09:00)
[2019-09-20] MEDS: MIDODRINE HCL 2.5MG TABLET PO SCH ×3 (09:01→17:19)
[2019-09-20] MEDS: PREDNISONE 20MG TABLET PO SCH (09:01)
[2019-09-20] MEDS: APIXABAN 2.5 MG TABLET PO SCH ×2 (09:01→17:20)
[2019-09-20] MEDS: MULTIVITAMINS,THER W-MINERALS TABLET PO SCH (09:01)
[2019-09-20] MEDS: FAMOTIDINE 20MG TABLET PO SCH (09:01)
[2019-09-20 12:00] VITALS: BP 100/61
[2019-09-20 16:00] VITALS: BP 102/53
[2019-09-20 17:29] LABS: PLATELET ESTIMATE NORMAL
[2019-09-20 20:00] VITALS: BP 103/47
[2019-09-20] MEDS: LACTULOSE 20G/30ML UDC PO SCH (20:27)
[2019-09-21] VITALS: BP 115/61
[2019-09-21] MEDS: DILTIAZEM HCL 30MG TABLET PO SCH ×4 (00:19→17:12)
[2019-09-21] MEDS: METOCLOPRAMIDE HCL 5MG TABLET PO SCH ×4 (00:19→17:12)
[2019-09-21] MEDS: IPRATROPIUM/ALBUTEROL 0.5-3(2.5)MG/3ML NEB HHN SCH ×5 (00:33→21:09)
[2019-09-21 04:00] VITALS: BP 95/53
[2019-09-21] MEDS: SILDENAFIL CITRATE 20MG TABLET PO SCH ×3 (06:03→21:34)
[2019-09-21 08:00] VITALS: BP 100/57
[2019-09-21] MEDS: BISACODYL 5MG TABLET PO SCH (09:00)
[2019-09-21] MEDS: FAMOTIDINE 20MG TABLET PO SCH (09:03)
[2019-09-21] MEDS: SPIRONOLACTONE 25MG TABLET PO SCH (09:03)
[2019-09-21] MEDS: FUROSEMIDE 40MG/4ML VIAL IVP SCH (09:03)
[2019-09-21] MEDS: PREDNISONE 20MG TABLET PO SCH (09:03)
[2019-09-21] MEDS: APIXABAN 2.5 MG TABLET PO SCH ×2 (09:03→17:12)
[2019-09-21] MEDS: MIDODRINE HCL 2.5MG TABLET PO SCH ×3 (09:03→17:11)
[2019-09-21] MEDS: MULTIVITAMINS,THER W-MINERALS TABLET PO SCH (09:03)
[2019-09-21] MEDS: DOCUSATE SODIUM 250MG CAPSULE PO SCH ×2 (09:06→17:12)
[2019-09-21 12:00] VITALS: BP 101/52
[2019-09-21 14:21] LABS: PLATELET ESTIMATE NORMAL
[2019-09-21 16:00] VITALS: BP 105/56
[2019-09-21 20:00] VITALS: BP 109/62
[2019-09-21] MEDS: LACTULOSE 20G/30ML UDC PO SCH (21:34)
[2019-09-22] VITALS: BP 100/59
[2019-09-22] MEDS: IPRATROPIUM/ALBUTEROL 0.5-3(2.5)MG/3ML NEB HHN SCH ×8 (00:49→23:46)
[2019-09-22] MEDS: METOCLOPRAMIDE HCL 5MG TABLET PO SCH ×5 (01:11→23:26)
[2019-09-22] MEDS: DILTIAZEM HCL 30MG TABLET PO SCH ×5 (01:12→23:24)
[2019-09-22 04:00] VITALS: BP 105/61
[2019-09-22] MEDS: SILDENAFIL CITRATE 20MG TABLET PO SCH ×3 (06:03→21:23)
[2019-09-22 08:00] VITALS: BP 102/56
[2019-09-22] MEDS: MIDODRINE HCL 2.5MG TABLET PO SCH ×3 (09:44→17:35)
[2019-09-22] MEDS: DOCUSATE SODIUM 250MG CAPSULE PO SCH ×2 (09:44→17:34)
[2019-09-22] MEDS: BISACODYL 5MG TABLET PO SCH (09:44)
[2019-09-22] MEDS: APIXABAN 2.5 MG TABLET PO SCH ×2 (09:45→17:35)
[2019-09-22] MEDS: FUROSEMIDE 40MG/4ML VIAL IVP SCH (09:45)
[2019-09-22] MEDS: FAMOTIDINE 20MG TABLET PO SCH (09:45)
[2019-09-22] MEDS: MULTIVITAMINS,THER W-MINERALS TABLET PO SCH (09:45)
[2019-09-22] MEDS: PREDNISONE 20MG TABLET PO SCH (09:45)
[2019-09-22] MEDS: ACETAMINOPHEN 325MG TABLET PO PRN (09:58)
[2019-09-22 12:00] VITALS: BP 97/58
[2019-09-22 13:29] LABS: HEMATOCRIT. 34.9 % (36.0-48.0); HEMOGLOBIN. 11.5 g/dL (12.0-16.0); MEAN CORPUSCULAR HEMOGLOBIN 27.9 pg (28.0-32.0); MEAN CORPUSCULAR VOLUME 84.7 fL (81.0-99.0); MEAN PLATELET VOLUME 8.6 fl (7.4-10.4); PLATELET 213 x1000/uL (130-400); RED BLOOD CELL COUNT 4.12 mill/uL (4.2-5.4); RED CELL DISTRIBUTION WIDTH 18.1 % (11.6-14.6)
[2019-09-22 13:39] LABS: CHLORIDE 99 mEq/L (98-107)
[2019-09-22 14:16] LABS: PLATELET ESTIMATE NORMAL
[2019-09-22 16:00] VITALS: BP 98/44
[2019-09-22] MEDS ORDERED: POTASSIUM CHLORIDE 20MEQ TABLET SR PO ONE (16:30)
[2019-09-22 17:08] LABS: BG BASE EXCESS 8.1 mmol/L (-2.0-2.0); BG CARBOXYHEMOGLOBIN 0.8 % (0.5-1.5); BG DEOXYHEMOGLOBIN 3.2 % (0.0-5.0); BG FRACTION INSPIRED OXYGEN 36; BG HCO3 ACT 33.5 mmol/L (22.0-26.0); BG METHEMOGLOBIN 0.3 % (0.0-1.5); BG OXYGEN SATURATION 96.8 % (92.0-98.5); BG OXYHEMOGLOBIN 95.7 % (94.0-97.0); BG PCO2 50.1 mmHg (35.0-45.0); BG PH 7.443 (7.350-7.450); BG PO2 87.7 mmHg (75.0-100.0); BG SAMPLE SITE RIGHT BRACHIAL; BG TOTAL HEMOGLOBIN 12.1 g/dL (12.0-18.0); BG VENT MODE NASAL CANNULA
[2019-09-22 20:00] VITALS: BP 108/60
[2019-09-22] MEDS: POTASSIUM CHLORIDE 20MEQ TABLET SR PO ONE ×2 (20:30→21:24)
[2019-09-22] MEDS: LACTULOSE 20G/30ML UDC PO SCH ×2 (21:00→21:23)
[2019-09-22] MEDS: GUAIFENESIN 600MG ER TABLET PO SCH (21:24)
[2019-09-23] VITALS: BP 93/60
[2019-09-23] MEDS: ACETAMINOPHEN 325MG TABLET PO PRN ×2 (03:18→13:55)
[2019-09-23 04:00] VITALS: BP 106/58
[2019-09-23] MEDS: IPRATROPIUM/ALBUTEROL 0.5-3(2.5)MG/3ML NEB HHN SCH ×5 (04:58→20:29)
[2019-09-23] MEDS: METOCLOPRAMIDE HCL 5MG TABLET PO SCH ×3 (05:50→18:02)
[2019-09-23] MEDS: SILDENAFIL CITRATE 20MG TABLET PO SCH ×3 (05:51→21:37)
[2019-09-23] MEDS: DILTIAZEM HCL 30MG TABLET PO SCH ×3 (05:51→18:01)
[2019-09-23 08:00] VITALS: BP 93/63
[2019-09-23 08:14] LABS: CHLORIDE 99 mEq/L (98-107)
[2019-09-23 09:15] LABS: HEMATOCRIT. 33.3 % (36.0-48.0); HEMOGLOBIN. 11.1 g/dL (12.0-16.0); MEAN CORPUSCULAR HEMOGLOBIN 28.3 pg (28.0-32.0); MEAN CORPUSCULAR VOLUME 84.5 fL (81.0-99.0); MEAN PLATELET VOLUME 8.8 fl (7.4-10.4); PLATELET 183 x1000/uL (130-400); RED BLOOD CELL COUNT 3.94 mill/uL (4.2-5.4); RED CELL DISTRIBUTION WIDTH 18.1 % (11.6-14.6)
[2019-09-23] MEDS: BISACODYL 5MG TABLET PO SCH (09:20)
[2019-09-23] MEDS: DOCUSATE SODIUM 250MG CAPSULE PO SCH ×2 (09:20→18:02)
[2019-09-23] MEDS: APIXABAN 2.5 MG TABLET PO SCH ×2 (09:20→18:02)
[2019-09-23] MEDS: MIDODRINE HCL 2.5MG TABLET PO SCH ×3 (09:21→18:02)
[2019-09-23] MEDS: FAMOTIDINE 20MG TABLET PO SCH (09:21)
[2019-09-23] MEDS: FUROSEMIDE 40MG/4ML VIAL IVP SCH (09:21)
[2019-09-23] MEDS: MULTIVITAMINS,THER W-MINERALS TABLET PO SCH (09:21)
[2019-09-23] MEDS: SPIRONOLACTONE 25MG TABLET PO SCH (09:21)
[2019-09-23] MEDS: PREDNISONE 20MG TABLET PO SCH (09:21)
[2019-09-23] MEDS: GUAIFENESIN 600MG ER TABLET PO SCH ×2 (09:26→21:37)
[2019-09-23 12:00] VITALS: BP 106/52
[2019-09-23 16:00] VITALS: BP 102/57
[2019-09-23 16:33] LABS: PLATELET ESTIMATE NORMAL
[2019-09-23] MEDS: ONDANSETRON HCL 4MG/2ML INJ IV PRN (19:10)
[2019-09-23 20:00] VITALS: BP 105/57
[2019-09-23] MEDS: LACTULOSE 20G/30ML UDC PO SCH (21:00)
[2019-09-24] VITALS: BP 103/61
[2019-09-24] MEDS: METOCLOPRAMIDE HCL 5MG TABLET PO SCH ×4 (00:38→17:53)
[2019-09-24] MEDS: DILTIAZEM HCL 30MG TABLET PO SCH ×4 (00:38→17:53)
[2019-09-24] MEDS: IPRATROPIUM/ALBUTEROL 0.5-3(2.5)MG/3ML NEB HHN SCH ×6 (00:43→21:50)
[2019-09-24 04:00] VITALS: BP 103/56
[2019-09-24] MEDS: SILDENAFIL CITRATE 20MG TABLET PO SCH ×3 (05:07→20:44)
[2019-09-24 08:00] VITALS: BP 103/65
[2019-09-24] MEDS: FUROSEMIDE 40MG/4ML VIAL IVP SCH (09:13)
[2019-09-24] MEDS: APIXABAN 2.5 MG TABLET PO SCH ×2 (09:13→17:53)
[2019-09-24] MEDS: FAMOTIDINE 20MG TABLET PO SCH (09:13)
[2019-09-24] MEDS: BISACODYL 5MG TABLET PO SCH (09:14)
[2019-09-24] MEDS: PREDNISONE 20MG TABLET PO SCH (09:14)
[2019-09-24] MEDS: MIDODRINE HCL 2.5MG TABLET PO SCH ×3 (09:14→17:53)
[2019-09-24] MEDS: DOCUSATE SODIUM 250MG CAPSULE PO SCH ×2 (09:14→17:53)
[2019-09-24] MEDS: MULTIVITAMINS,THER W-MINERALS TABLET PO SCH (09:14)
[2019-09-24] MEDS: ONDANSETRON HCL 4MG/2ML INJ IV PRN (10:55)
[2019-09-24] MEDS: NAPHAZOLINE HCL/PHENIR MAL OPHTH SOLN 15ML BOTHEYE PRN ×2 (10:55→20:45)
[2019-09-24] MEDS: GUAIFENESIN 600MG ER TABLET PO SCH ×2 (10:55→20:45)
[2019-09-24 12:00] VITALS: BP 103/49
[2019-09-24 16:00] VITALS: BP 96/54
[2019-09-24 20:00] VITALS: BP 98/59
[2019-09-24] MEDS: LACTULOSE 20G/30ML UDC PO SCH (20:27)
[2019-09-25] VITALS: BP 106/61
[2019-09-25] MEDS: METOCLOPRAMIDE HCL 5MG TABLET PO SCH ×4 (00:53→18:17)
[2019-09-25] MEDS: DILTIAZEM HCL 30MG TABLET PO SCH ×4 (00:53→18:17)
[2019-09-25] MEDS: IPRATROPIUM/ALBUTEROL 0.5-3(2.5)MG/3ML NEB HHN SCH ×6 (01:12→21:03)
[2019-09-25 04:00] VITALS: BP 112/63
[2019-09-25] MEDS: SILDENAFIL CITRATE 20MG TABLET PO SCH ×3 (06:15→21:08)
[2019-09-25 08:00] VITALS: BP 96/64
[2019-09-25] MEDS: SPIRONOLACTONE 25MG TABLET PO SCH (09:00)
[2019-09-25] MEDS: FUROSEMIDE 40MG/4ML VIAL IVP SCH (09:00)
[2019-09-25 09:18] LABS: CHLORIDE 97 mEq/L (98-107)
[2019-09-25] MEDS: DOCUSATE SODIUM 250MG CAPSULE PO SCH ×2 (09:39→18:08)
[2019-09-25] MEDS: GUAIFENESIN 600MG ER TABLET PO SCH ×2 (09:39→21:08)
[2019-09-25] MEDS: MIDODRINE HCL 2.5MG TABLET PO SCH ×3 (09:40→18:08)
[2019-09-25] MEDS: MULTIVITAMINS,THER W-MINERALS TABLET PO SCH (09:40)
[2019-09-25] MEDS: PREDNISONE 20MG TABLET PO SCH (09:40)
[2019-09-25] MEDS: BISACODYL 5MG TABLET PO SCH (09:40)
[2019-09-25] MEDS: FAMOTIDINE 20MG TABLET PO SCH (09:40)
[2019-09-25] MEDS: APIXABAN 2.5 MG TABLET PO SCH ×2 (09:40→18:09)
[2019-09-25 12:00] VITALS: BP 101/62
[2019-09-25] MEDS: ONDANSETRON HCL 4MG/2ML INJ IV PRN (13:48)
[2019-09-25] MEDS: NAPHAZOLINE HCL/PHENIR MAL OPHTH SOLN 15ML BOTHEYE PRN ×2 (13:48→21:09)
[2019-09-25 16:00] VITALS: BP 102/59
[2019-09-25] MEDS: ACETAMINOPHEN 325MG TABLET PO PRN (18:08)
[2019-09-25 20:00] VITALS: BP 102/59
[2019-09-25] MEDS: LACTULOSE 20G/30ML UDC PO SCH (21:00)
[2019-09-25] MEDS: DRONABINOL 2.5MG CAPSULE PO SCH (21:00)
[2019-09-26] VITALS: BP 108/63
[2019-09-26] MEDS: IPRATROPIUM/ALBUTEROL 0.5-3(2.5)MG/3ML NEB HHN SCH ×6 (00:26→21:14)
[2019-09-26] MEDS: METOCLOPRAMIDE HCL 5MG TABLET PO SCH ×4 (00:53→17:16)
[2019-09-26] MEDS: DILTIAZEM HCL 30MG TABLET PO SCH ×4 (00:53→17:16)
[2019-09-26] MEDS: ACETAMINOPHEN 325MG TABLET PO PRN (03:07)
[2019-09-26 04:00] VITALS: BP 101/65
[2019-09-26] MEDS: SILDENAFIL CITRATE 20MG TABLET PO SCH ×3 (06:13→21:25)
[2019-09-26] MEDS: GUAIFENESIN 200MG/10ML SUGAR FREE UDC PO PRN ×2 (06:44→17:18)
[2019-09-26 08:00] VITALS: BP_SYST 107; BP_SYST 137; BP_DIAS 55; BP_DIAS 61
[2019-09-26] MEDS: FUROSEMIDE 40MG/4ML VIAL IVP SCH (08:32)
[2019-09-26] MEDS: GUAIFENESIN 600MG ER TABLET PO SCH ×2 (08:32→21:25)
[2019-09-26] MEDS: DOCUSATE SODIUM 250MG CAPSULE PO SCH ×2 (08:33→17:16)
[2019-09-26] MEDS: APIXABAN 2.5 MG TABLET PO SCH ×2 (08:33→17:16)
[2019-09-26] MEDS: PREDNISONE 20MG TABLET PO SCH (08:33)
[2019-09-26] MEDS: BISACODYL 5MG TABLET PO SCH (08:34)
[2019-09-26] MEDS: MULTIVITAMINS,THER W-MINERALS TABLET PO SCH (08:34)
[2019-09-26] MEDS: FAMOTIDINE 20MG TABLET PO SCH (08:34)
[2019-09-26] MEDS: MIDODRINE HCL 2.5MG TABLET PO SCH ×3 (09:50→17:16)
[2019-09-26] MEDS: ONDANSETRON HCL 4MG/2ML INJ IV PRN (09:50)
[2019-09-26] MEDS: DRONABINOL 2.5MG CAPSULE PO SCH ×2 (09:50→17:16)
[2019-09-26 12:00] VITALS: BP 108/54
[2019-09-26] MEDS ORDERED: BISACODYL 10MG SUPP PR PRN (14:15)
[2019-09-26] MEDS ORDERED: GUAIFENESIN/CODEINE 200-20MG/10ML UDC PO PRN (15:00)
[2019-09-26 16:00] VITALS: BP 106/62
[2019-09-26 20:00] VITALS: BP 96/46
[2019-09-26] MEDS: LACTULOSE 20G/30ML UDC PO SCH (20:17)
[2019-09-27] VITALS: BP 101/62
[2019-09-27] MEDS: METOCLOPRAMIDE HCL 5MG TABLET PO SCH ×5 (00:48→16:49)
[2019-09-27] MEDS: DILTIAZEM HCL 30MG TABLET PO SCH ×5 (00:48→16:49)
[2019-09-27] MEDS: IPRATROPIUM/ALBUTEROL 0.5-3(2.5)MG/3ML NEB HHN SCH ×6 (01:07→21:00)
[2019-09-27 04:00] VITALS: BP 99/58
[2019-09-27] MEDS: SILDENAFIL CITRATE 20MG TABLET PO SCH ×4 (06:00→21:22)
[2019-09-27] MEDS: ONDANSETRON HCL 4MG/2ML INJ IV PRN ×2 (06:08→14:09)
[2019-09-27 08:00] VITALS: BP 96/57
[2019-09-27] MEDS: DRONABINOL 2.5MG CAPSULE PO SCH ×2 (09:00→16:49)
[2019-09-27] MEDS: BISACODYL 5MG TABLET PO SCH (09:00)
[2019-09-27] MEDS: GUAIFENESIN 600MG ER TABLET PO SCH ×2 (09:00→21:22)
[2019-09-27] MEDS: FUROSEMIDE 40MG/4ML VIAL IVP SCH (09:11)
[2019-09-27] MEDS: MULTIVITAMINS,THER W-MINERALS TABLET PO SCH (09:11)
[2019-09-27] MEDS: PREDNISONE 20MG TABLET PO SCH (09:12)
[2019-09-27] MEDS: APIXABAN 2.5 MG TABLET PO SCH ×2 (09:12→16:49)
[2019-09-27] MEDS: FAMOTIDINE 20MG TABLET PO SCH (09:12)
[2019-09-27] MEDS: MIDODRINE HCL 2.5MG TABLET PO SCH ×3 (09:13→16:49)
[2019-09-27] MEDS: DOCUSATE SODIUM 250MG CAPSULE PO SCH ×2 (09:13→16:50)
[2019-09-27] MEDS: SPIRONOLACTONE 25MG TABLET PO SCH (09:13)
[2019-09-27 12:00] VITALS: BP 108/78
[2019-09-27] MEDS: NAPHAZOLINE HCL/PHENIR MAL OPHTH SOLN 15ML BOTHEYE PRN (14:07)
[2019-09-27 16:00] VITALS: BP 98/60
[2019-09-27] MEDS: AZITHROMYCIN 500 MG TABLET PO SCH (17:36)
[2019-09-27 20:00] VITALS: BP 109/62
[2019-09-27] MEDS: LACTULOSE 20G/30ML UDC PO SCH (21:22)
[2019-09-28] VITALS: BP 109/56
[2019-09-28] MEDS: DILTIAZEM HCL 30MG TABLET PO SCH ×4 (00:59→17:59)
[2019-09-28] MEDS: METOCLOPRAMIDE HCL 5MG TABLET PO SCH ×4 (00:59→18:01)
[2019-09-28 04:00] VITALS: BP 99/65
[2019-09-28] MEDS: IPRATROPIUM/ALBUTEROL 0.5-3(2.5)MG/3ML NEB HHN SCH ×6 (05:01→20:29)
[2019-09-28] MEDS: SILDENAFIL CITRATE 20MG TABLET PO SCH ×3 (06:05→21:33)
[2019-09-28 07:02] LABS: HEMATOCRIT. 29.2 % (36.0-48.0); HEMOGLOBIN. 9.8 g/dL (12.0-16.0); MEAN CORPUSCULAR HEMOGLOBIN 28.3 pg (28.0-32.0); MEAN CORPUSCULAR VOLUME 84.4 fL (81.0-99.0); PLATELET 112 x1000/uL (130-400); RED BLOOD CELL COUNT 3.46 mill/uL (4.2-5.4); RED CELL DISTRIBUTION WIDTH 19.3 % (11.6-14.6)
[2019-09-28 07:14] LABS: CHLORIDE 97 mEq/L (98-107)
[2019-09-28 08:00] VITALS: BP 95/50
[2019-09-28] MEDS: MULTIVITAMINS,THER W-MINERALS TABLET PO SCH (09:55)
[2019-09-28] MEDS: AZITHROMYCIN 500 MG TABLET PO SCH (09:55)
[2019-09-28] MEDS: FUROSEMIDE 40MG/4ML VIAL IVP SCH (09:55)
[2019-09-28] MEDS: DOCUSATE SODIUM 250MG CAPSULE PO SCH ×2 (09:55→17:56)
[2019-09-28] MEDS: MIDODRINE HCL 2.5MG TABLET PO SCH ×3 (09:55→18:02)
[2019-09-28] MEDS: DRONABINOL 2.5MG CAPSULE PO SCH ×2 (09:55→17:59)
[2019-09-28] MEDS: FAMOTIDINE 20MG TABLET PO SCH (09:56)
[2019-09-28] MEDS: BISACODYL 5MG TABLET PO SCH (09:56)
[2019-09-28] MEDS: GUAIFENESIN 600MG ER TABLET PO SCH ×2 (09:56→21:33)
[2019-09-28] MEDS: APIXABAN 2.5 MG TABLET PO SCH ×2 (09:56→17:59)
[2019-09-28 12:00] VITALS: BP 113/53
[2019-09-28 16:00] VITALS: BP 96/57
[2019-09-28] MEDS ORDERED: BENZONATATE 100MG CAPSULE PO PRN (17:30)
[2019-09-28] MEDS ORDERED: BISACODYL 10MG SUPP PR PRN (17:30)
[2019-09-28 20:00] VITALS: BP 110/50
[2019-09-28 20:06] LABS: PLATELET ESTIMATE DECREASED
[2019-09-28] MEDS: LACTULOSE 20G/30ML UDC PO SCH (21:33)
[2019-09-29] VITALS: BP 106/64
[2019-09-29] MEDS: LIDOCAINE HCL/PF 1% 2ML VIAL INH SCH (00:22)
[2019-09-29] MEDS: IPRATROPIUM/ALBUTEROL 0.5-3(2.5)MG/3ML NEB HHN SCH ×6 (00:25→20:39)
[2019-09-29] MEDS: METOCLOPRAMIDE HCL 5MG TABLET PO SCH ×4 (00:50→18:44)
[2019-09-29] MEDS: DILTIAZEM HCL 30MG TABLET PO SCH ×4 (00:51→18:49)
[2019-09-29 04:00] VITALS: BP 94/50
[2019-09-29] MEDS: SILDENAFIL CITRATE 20MG TABLET PO SCH ×3 (05:40→22:13)
[2019-09-29] MEDS: MULTIVITAMINS,THER W-MINERALS TABLET PO SCH (08:20)
[2019-09-29] MEDS: FUROSEMIDE 40MG/4ML VIAL IVP SCH (08:20)
[2019-09-29] MEDS: DOCUSATE SODIUM 250MG CAPSULE PO SCH ×2 (08:20→16:44)
[2019-09-29] MEDS: GUAIFENESIN 600MG ER TABLET PO SCH ×2 (08:20→22:13)
[2019-09-29] MEDS: AZITHROMYCIN 500 MG TABLET PO SCH (08:22)
[2019-09-29] MEDS: APIXABAN 2.5 MG TABLET PO SCH ×2 (08:22→17:20)
[2019-09-29] MEDS: MIDODRINE HCL 2.5MG TABLET PO SCH ×3 (08:22→17:20)
[2019-09-29] MEDS: SPIRONOLACTONE 25MG TABLET PO SCH (08:22)
[2019-09-29] MEDS: FAMOTIDINE 20MG TABLET PO SCH (08:22)
[2019-09-29] MEDS: BISACODYL 5MG TABLET PO SCH (08:45)
[2019-09-29] MEDS: DRONABINOL 2.5MG CAPSULE PO SCH ×2 (10:05→16:44)
[2019-09-29 12:00] VITALS: BP 100/58
[2019-09-29 13:00] LABS: HEMATOCRIT. 27.8 % (36.0-48.0); HEMOGLOBIN. 9.2 g/dL (12.0-16.0); MEAN CORPUSCULAR HEMOGLOBIN 28.2 pg (28.0-32.0); MEAN CORPUSCULAR VOLUME 85.5 fL (81.0-99.0); MEAN PLATELET VOLUME 9.1 fl (7.4-10.4); PLATELET 106 x1000/uL (130-400); RED BLOOD CELL COUNT 3.25 mill/uL (4.2-5.4)
[2019-09-29 13:05] LABS: CHLORIDE 101 mEq/L (98-107)
[2019-09-29 13:38] LABS: PLATELET ESTIMATE SLIGHTLY DECREASED
[2019-09-29] MEDS: LACTULOSE 20G/30ML UDC PO SCH ×5 (15:54→22:13)
[2019-09-29 16:00] VITALS: BP 95/50
[2019-09-29] MEDS ORDERED: LORAZEPAM 0.5MG TABLET PO PRN (18:45)
[2019-09-29 20:00] VITALS: BP 97/57
[2019-09-29] MEDS: ONDANSETRON HCL 4MG/2ML INJ IV PRN (22:17)
[2019-09-29] MEDS: BENZONATATE 100MG CAPSULE PO SCH (22:17)
[2019-09-30] VITALS: BP 101/52
[2019-09-30] MEDS: METOCLOPRAMIDE HCL 5MG TABLET PO SCH ×4 (00:09→18:00)
[2019-09-30] MEDS: DILTIAZEM HCL 30MG TABLET PO SCH ×4 (00:09→18:00)
[2019-09-30] MEDS: IPRATROPIUM/ALBUTEROL 0.5-3(2.5)MG/3ML NEB HHN SCH ×7 (00:24→21:07)
[2019-09-30 04:00] VITALS: BP 100/54
[2019-09-30] MEDS: SILDENAFIL CITRATE 20MG TABLET PO SCH ×3 (06:04→21:06)
[2019-09-30] MEDS: BENZONATATE 100MG CAPSULE PO SCH ×3 (06:05→21:07)
[2019-09-30 08:00] VITALS: BP 90/63
[2019-09-30] MEDS: LIDOCAINE HCL/PF 1% 2ML VIAL INH SCH ×3 (08:52→12:48)
[2019-09-30] MEDS: MULTIVITAMINS,THER W-MINERALS TABLET PO SCH (09:29)
[2019-09-30] MEDS: APIXABAN 2.5 MG TABLET PO SCH ×2 (09:29→17:23)
[2019-09-30] MEDS: DOCUSATE SODIUM 250MG CAPSULE PO SCH ×2 (09:29→17:22)
[2019-09-30] MEDS: FAMOTIDINE 20MG TABLET PO SCH (09:29)
[2019-09-30] MEDS: DRONABINOL 2.5MG CAPSULE PO SCH ×2 (09:29→17:23)
[2019-09-30] MEDS: MIDODRINE HCL 2.5MG TABLET PO SCH ×3 (09:29→17:23)
[2019-09-30] MEDS: AZITHROMYCIN 500 MG TABLET PO SCH (09:29)
[2019-09-30] MEDS: GUAIFENESIN 600MG ER TABLET PO SCH ×2 (09:29→21:06)
[2019-09-30] MEDS: FUROSEMIDE 40MG/4ML VIAL IVP SCH (09:30)
[2019-09-30] MEDS: BISACODYL 5MG TABLET PO SCH (09:39)
[2019-09-30] MEDS: ONDANSETRON HCL 4MG/2ML INJ IV PRN ×2 (10:27→16:11)
[2019-09-30 12:00] VITALS: BP 102/56
[2019-09-30 16:00] VITALS: BP 114/63
[2019-09-30] MEDS ORDERED: BISACODYL 10MG SUPP PR NR (16:15)
[2019-09-30 18:06] LABS: CHLORIDE 112 mEq/L (98-107)
[2019-09-30] MEDS ORDERED: BISACODYL 10MG SUPP PR PRN (18:15)
[2019-09-30 20:00] VITALS: BP 104/59
[2019-09-30] MEDS: POLYETHYLENE GLYCOL 3350 (17GM) 1 DOSE PACK PO SCH ×2 (21:00→21:06)
[2019-09-30] MEDS: LACTULOSE 20G/30ML UDC PO SCH ×2 (21:00→21:06)
[2019-10-01 00:07] VITALS: BP 93/55
[2019-10-01] MEDS: ACETAMINOPHEN 325MG TABLET PO PRN ×2 (01:13→14:37)
[2019-10-01] MEDS: METOCLOPRAMIDE HCL 5MG TABLET PO SCH ×4 (01:15→18:48)
[2019-10-01] MEDS: DILTIAZEM HCL 30MG TABLET PO SCH ×4 (01:16→18:49)
[2019-10-01] MEDS: IPRATROPIUM/ALBUTEROL 0.5-3(2.5)MG/3ML NEB HHN SCH ×6 (01:22→19:58)
[2019-10-01] MEDS ORDERED: POTASSIUM CHLORIDE 20MEQ/PACKET PO NR ×2 (02:00→06:00)
[2019-10-01 04:00] VITALS: BP 95/51
[2019-10-01] MEDS: BENZONATATE 100MG CAPSULE PO SCH ×3 (05:50→21:59)
[2019-10-01] MEDS: SILDENAFIL CITRATE 20MG TABLET PO SCH ×3 (05:50→21:59)
[2019-10-01 07:27] LABS: CHLORIDE 98 mEq/L (98-107)
[2019-10-01 07:51] LABS: HEMATOCRIT. 27.8 % (36.0-48.0); HEMOGLOBIN. 9.2 g/dL (12.0-16.0); MEAN CORPUSCULAR HEMOGLOBIN 28.1 pg (28.0-32.0); MEAN CORPUSCULAR VOLUME 84.9 fL (81.0-99.0); MEAN PLATELET VOLUME 9.2 fl (7.4-10.4); PLATELET 153 x1000/uL (130-400); RED BLOOD CELL COUNT 3.28 mill/uL (4.2-5.4); RED CELL DISTRIBUTION WIDTH 19.5 % (11.6-14.6)
[2019-10-01 08:00] VITALS: BP 104/54
[2019-10-01] MEDS: BISACODYL 5MG TABLET PO SCH (09:00)
[2019-10-01] MEDS: DOCUSATE SODIUM 250MG CAPSULE PO SCH ×2 (11:03→18:48)
[2019-10-01] MEDS: SPIRONOLACTONE 25MG TABLET PO SCH (11:04)
[2019-10-01] MEDS: DRONABINOL 2.5MG CAPSULE PO SCH ×2 (11:04→18:48)
[2019-10-01] MEDS: APIXABAN 2.5 MG TABLET PO SCH ×2 (11:04→18:49)
[2019-10-01] MEDS: GUAIFENESIN 600MG ER TABLET PO SCH ×2 (11:04→21:58)
[2019-10-01] MEDS: MULTIVITAMINS,THER W-MINERALS TABLET PO SCH (11:04)
[2019-10-01] MEDS: MIDODRINE HCL 2.5MG TABLET PO SCH ×3 (11:04→18:48)
[2019-10-01] MEDS: FAMOTIDINE 20MG TABLET PO SCH (11:05)
[2019-10-01] MEDS: FUROSEMIDE 40MG/4ML VIAL IVP SCH (11:06)
[2019-10-01 12:00] VITALS: BP 106/61
[2019-10-01] MEDS: ONDANSETRON HCL 4MG/2ML INJ IV PRN (14:37)
[2019-10-01 16:00] VITALS: BP 96/51
[2019-10-01] MEDS: LIDOCAINE HCL/PF 1% 2ML VIAL INH SCH (16:26)
[2019-10-01 16:33] LABS: PLATELET ESTIMATE NORMAL
[2019-10-01] MEDS: NAPHAZOLINE HCL/PHENIR MAL OPHTH SOLN 15ML BOTHEYE PRN (18:51)
[2019-10-01 20:00] VITALS: BP 103/61
[2019-10-01] MEDS: LACTULOSE 20G/30ML UDC PO SCH ×2 (21:00→21:58)
[2019-10-01] MEDS: POLYETHYLENE GLYCOL 3350 (17GM) 1 DOSE PACK PO SCH ×2 (21:00→21:59)
[2019-10-02] VITALS: BP 92/56
[2019-10-02] MEDS: IPRATROPIUM/ALBUTEROL 0.5-3(2.5)MG/3ML NEB HHN SCH ×5 (00:08→20:00)
[2019-10-02] MEDS: DILTIAZEM HCL 30MG TABLET PO SCH ×4 (00:51→18:19)
[2019-10-02 04:00] VITALS: BP 94/62
[2019-10-02] MEDS: METOCLOPRAMIDE HCL 5MG TABLET PO SCH ×4 (06:00→18:00)
[2019-10-02] MEDS ORDERED: METOCLOPRAMIDE HCL 10MG TABLET PO SCH (06:30)
[2019-10-02] MEDS: SILDENAFIL CITRATE 20MG TABLET PO SCH ×2 (06:33→13:02)
[2019-10-02] MEDS: BENZONATATE 100MG CAPSULE PO SCH ×2 (06:34→13:02)
[2019-10-02 08:00] VITALS: BP 98/86
[2019-10-02 08:41] LABS: CHLORIDE 99 mEq/L (98-107)
[2019-10-02] MEDS: BISACODYL 5MG TABLET PO SCH (09:00)
[2019-10-02] MEDS: DOCUSATE SODIUM 250MG CAPSULE PO SCH ×2 (09:00→17:00)
[2019-10-02] MEDS ORDERED: FUROSEMIDE 40MG TABLET PO SCH (09:00)
[2019-10-02] MEDS: MIDODRINE HCL 2.5MG TABLET PO SCH ×3 (10:07→18:19)
[2019-10-02] MEDS: FAMOTIDINE 20MG TABLET PO SCH (10:07)
[2019-10-02] MEDS: DRONABINOL 2.5MG CAPSULE PO SCH ×2 (10:07→18:19)
[2019-10-02] MEDS: APIXABAN 2.5 MG TABLET PO SCH ×2 (10:07→18:19)
[2019-10-02] MEDS: MULTIVITAMINS,THER W-MINERALS TABLET PO SCH (10:07)
[2019-10-02] MEDS: GUAIFENESIN 600MG ER TABLET PO SCH (10:07)
[2019-10-02] MEDS: ONDANSETRON HCL 4MG/2ML INJ IV PRN (11:04)
[2019-10-02] MEDS: ACETAMINOPHEN 325MG TABLET PO PRN (11:27)
[2019-10-02 12:00] VITALS: BP 95/54
[2019-10-02] MEDS: NAPHAZOLINE HCL/PHENIR MAL OPHTH SOLN 15ML BOTHEYE PRN (18:19)
[2019-10-02 20:00] VITALS: BP 91/48
[2019-10-02 20:43] VITALS: BP 100/63
== END 2019-10-02 21:48 | disposition home or self-care (01) | DRG 291 ==
LOC: ER 10:55 → 5WST 13:57 → EDBEDREQSVC 14:19 → EDBEDREQ 14:19 → ENRESERV 21:22 → CANRESERV 21:22 → EDBEDREQSVC 23:31 → EDBEDREQTM 23:31 → ENRESERV 23:54
PROVIDERS: ADMIT Internal Medicine Pulmonary Disease; ATTEND Internal Medicine Pulmonary Disease
PROC: 5A09357 Assistance with Respiratory Ventilation, Less than 24 Consecutive Hours, Continuous Positive Airway Pressure (ICD-10-PCS; principal; 2019-09-08)
PROC: 0HBRXZZ Excision of Toe Nail, External Approach (ICD-10-PCS; 2019-09-11)
PROC: 0HBRXZZ Excision of Toe Nail, External Approach (ICD-10-PCS; 2019-09-11)
PROC: 0HBRXZZ Excision of Toe Nail, External Approach (ICD-10-PCS; 2019-09-11)
PROC: 0HBRXZZ Excision of Toe Nail, External Approach (ICD-10-PCS; 2019-09-11)
PROC: 0HBRXZZ Excision of Toe Nail, External Approach (ICD-10-PCS; 2019-09-11)
PROC: 0HBRXZZ Excision of Toe Nail, External Approach (ICD-10-PCS; 2019-09-11)
PROC: 0HBRXZZ Excision of Toe Nail, External Approach (ICD-10-PCS; 2019-09-11)
PROC: 0HBRXZZ Excision of Toe Nail, External Approach (ICD-10-PCS; 2019-09-11)
PROC: 0HBRXZZ Excision of Toe Nail, External Approach (ICD-10-PCS; 2019-09-11)
PROC: 0HBRXZZ Excision of Toe Nail, External Approach (ICD-10-PCS; 2019-09-11)
PROC: 02HV33Z Insertion of Infusion Device into Superior Vena Cava, Percutaneous Approach (ICD-10-PCS; 2019-09-18)
PROC: B548ZZA Ultrasonography of Superior Vena Cava, Guidance (ICD-10-PCS; 2019-09-18)
PROC: B5181ZA Fluoroscopy of Superior Vena Cava using Low Osmolar Contrast, Guidance (ICD-10-PCS; 2019-09-18)
DX: I13.0 Hypertensive heart and chronic kidney disease with heart failure and stage 1 through stage 4 chronic kidney disease, or unspecified chronic kidney disease (principal); J96.21 Acute and chronic respiratory failure with hypoxia; I50.33 Acute on chronic diastolic (congestive) heart failure; I33.0 Acute and subacute infective endocarditis; I48.20 Chronic atrial fibrillation, unspecified; N17.9 Acute kidney failure, unspecified; E46 Unspecified protein-calorie malnutrition; I47.2 Ventricular tachycardia; I48.21 Permanent atrial fibrillation; J91.8 Pleural effusion in other conditions classified elsewhere; E87.5 Hyperkalemia; I25.10 Atherosclerotic heart disease of native coronary artery without angina pectoris; I27.29 Other secondary pulmonary hypertension; D64.9 Anemia, unspecified; E87.6 Hypokalemia; I08.1 Rheumatic disorders of both mitral and tricuspid valves; I45.10 Unspecified right bundle-branch block; J43.9 Emphysema, unspecified; K21.9 Gastro-esophageal reflux disease without esophagitis; R26.9 Unspecified abnormalities of gait and mobility; E66.9 Obesity, unspecified; L57.0 Actinic keratosis; K57.30 Diverticulosis of large intestine without perforation or abscess without bleeding; K59.00 Constipation, unspecified; L60.0 Ingrowing nail; I27.81 Cor pulmonale (chronic); I95.89 Other hypotension; N18.9 Chronic kidney disease, unspecified; K74.60 Unspecified cirrhosis of liver; K80.20 Calculus of gallbladder without cholecystitis without obstruction; Z79.01 Long term (current) use of anticoagulants; Z90.710 Acquired absence of both cervix and uterus; Z99.81 Dependence on supplemental oxygen; Z90.49 Acquired absence of other specified parts of digestive tract; Z80.3 Family history of malignant neoplasm of breast; Z68.37 Body mass index [BMI] 37.0-37.9, adult; Z79.899 Other long term (current) drug therapy
CPT/HCPCS: 36415; 36573; 36600; 71045; 71046; 71250; 74018; 74176; 76700; 76937; 78227; 80048; 80053; 80076; 81003; 82375; 82805; 82962; 83735; 83880; 84100; 84132; 84484; 85025; 92610; 93005; 93306; 93970; 94640; 94660; 96365; 97162; 97166; 97530; 99285; A6261; A9537; C1725; J1815; J1940; J1956; J2405; J3490; J7040; J7512; J7620; J8597; Q0167; Q9963; A4315